=== PATIENT | male | born 1970 | race Caucasian/White ===

== ENCOUNTER → 2019-05-01 13:27 | Outpatient (BNVA) | payer MEDICARE, MEDICAID, SELFPAY | PROVIDERS: Family Provider Family Medicine; Visit Provider Psychiatry & Neurology Neurology | DX: M50.020 Cervical disc disorder with myelopathy, mid-cervical region, unspecified level (principal); G56.02 Carpal tunnel syndrome, left upper limb | CPT/HCPCS: 95886; 95912 ==

== ENCOUNTER → 2019-05-31 12:31 | Outpatient (BNVA) | payer MEDICARE, MEDICAID, SELFPAY | PROVIDERS: Family Provider Family Medicine; PCP Family Medicine; Referring Provider Specialist; Visit Provider Anesthesiology Pain Medicine | DX: M50.920 Unspecified cervical disc disorder, mid-cervical region, unspecified level (principal); M43.12 Spondylolisthesis, cervical region; M50.020 Cervical disc disorder with myelopathy, mid-cervical region, unspecified level; M54.9 Dorsalgia, unspecified; G56.02 Carpal tunnel syndrome, left upper limb; Z98.1 Arthrodesis status | CPT/HCPCS: 99214; 99999 ==

== ENCOUNTER → 2019-06-05 11:48 | Outpatient (BNVA) | payer MEDICARE, MEDICAID, SELFPAY | PROVIDERS: Family Provider Family Medicine; PCP Family Medicine; Visit Provider Anesthesiology Pain Medicine | DX: M54.2 Cervicalgia (principal) | CPT/HCPCS: 62321; 77003; J1100; J2001 ==

== ENCOUNTER 2019-06-06 13:29 | Outpatient (RCR) | payer MEDICARE, MEDICAID, SELFPAY | END 2019-06-10 23:59 | disposition home or self-care (01) | LOC: SPT 13:29 | PROVIDERS: Family Provider Family Medicine; PCP Family Medicine; Referring Provider Specialist; Visit Provider Specialist | DX: M50.020 Cervical disc disorder with myelopathy, mid-cervical region, unspecified level (principal) | CPT/HCPCS: 97110; 97161; 97530 ==

== ENCOUNTER 2019-06-11 06:00 | Outpatient (RCR) | payer MEDICARE, MEDICAID, SELFPAY | END 2019-07-11 23:59 | disposition home or self-care (01) | LOC: SPT 06:00 | PROVIDERS: Family Provider Family Medicine; PCP Family Medicine; Referring Provider Specialist; Visit Provider Specialist | DX: M50.020 Cervical disc disorder with myelopathy, mid-cervical region, unspecified level (principal) | CPT/HCPCS: 97110 ==

== ENCOUNTER → 2019-06-29 12:59 | Outpatient (BNVA) | payer MEDICARE, MEDICAID, SELFPAY | PROVIDERS: Family Provider Family Medicine; PCP Family Medicine; Visit Provider Anesthesiology Pain Medicine | DX: M50.920 Unspecified cervical disc disorder, mid-cervical region, unspecified level (principal) | CPT/HCPCS: 62321; J1100; J2001 ==

== ENCOUNTER 2019-07-12 06:00 | Outpatient (RCR) | payer MEDICARE, MEDICAID, SELFPAY | END 2019-08-10 23:59 | disposition home or self-care (01) | LOC: SPT 06:00 | PROVIDERS: Family Provider Family Medicine; PCP Family Medicine; Referring Provider Specialist; Visit Provider Specialist | DX: M50.020 Cervical disc disorder with myelopathy, mid-cervical region, unspecified level (principal) | CPT/HCPCS: 97110 ==

== ENCOUNTER → 2019-07-13 09:19 | Outpatient (BNVA) | payer MEDICARE, MEDICAID, SELFPAY | PROVIDERS: Family Provider Family Medicine; PCP Family Medicine; Visit Provider Anesthesiology Pain Medicine | DX: M50.020 Cervical disc disorder with myelopathy, mid-cervical region, unspecified level (principal); M50.920 Unspecified cervical disc disorder, mid-cervical region, unspecified level; M43.12 Spondylolisthesis, cervical region; M54.9 Dorsalgia, unspecified; G56.02 Carpal tunnel syndrome, left upper limb; Z98.1 Arthrodesis status; Z79.891 Long term (current) use of opiate analgesic | CPT/HCPCS: 99214 ==

== ENCOUNTER 2019-08-11 06:00 | Outpatient (RCR) | payer MEDICARE, MEDICAID, SELFPAY | END 2019-09-10 23:59 | disposition home or self-care (01) | LOC: SPT 06:00 | PROVIDERS: PCP Family Medicine; Referring Provider Specialist; Visit Provider Specialist | DX: M50.020 Cervical disc disorder with myelopathy, mid-cervical region, unspecified level (principal) | CPT/HCPCS: 97110 ==

== ENCOUNTER → 2019-11-07 10:17 | Outpatient (BNVA) | payer MEDICARE, MEDICAID, SELFPAY | PROVIDERS: PCP Family Medicine; Visit Provider Anesthesiology Pain Medicine | DX: M54.42 Lumbago with sciatica, left side (principal); M54.41 Lumbago with sciatica, right side; M50.920 Unspecified cervical disc disorder, mid-cervical region, unspecified level; M43.12 Spondylolisthesis, cervical region; M50.020 Cervical disc disorder with myelopathy, mid-cervical region, unspecified level; M54.9 Dorsalgia, unspecified; G56.02 Carpal tunnel syndrome, left upper limb; Z98.1 Arthrodesis status | CPT/HCPCS: 99213 ==

== ENCOUNTER 2021-02-04 10:48 | Emergency (ER) | payer MEDICARE, MEDICAID, SELFPAY ==
[2021-02-04 11:13] VITALS: BP 155/75; PULSE 67; RESP 18; TEMP 36.8; O2SAT 96; BMI 29.2
--- NOTE | 2021-02-04 11:28 | W.ED.GENADLT ---
HPI - General Adult General: Chief complaint: Extremity Injury, Upper Stated complaint: L MIDDLE FINGER INJURY Time Seen by Provider: 02/04/21 11:04 History of Present Illness: HPI narrative: HPI: [50]yo patient w/ no PMH presenting to the ED w/ laceration to R middle finger while opening a wooden door to let his dog out around 10am. Endorses mild bleeding that stopped. No LOC, injury elsewhere, focal weakness, or significant mechanism of injury. UTD with tetanus. Not on antiplatelets or anticoagulants. Patient denies any foreign body sensation Onset: 1 hr ago Duration: x 1 episode Location: home Severity: mild Review of Systems Narrative: Constitutional: No fever, no chills. HEENT: No vision changes CV: No chest pain, no palpitations PULM: No productive cough, no dyspnea. GI: No abdominal pain, no N/V/D. : No Dysuria MSKEL: No muscle pain SKIN: +Laceration over R middle finger NEURO: No headache, no focal weakness. HEME: No visible bruises PSYCH: Normal mood PFSH ED PFSH: Medical History (Updated 02/04/21 @ 11:27 by Chemo Rey MD) Cervical disc disorder with myelopathy of mid-cervical region Surgical History History of lumbar laminectomy (08/10/16) Dr. Pepper L4-L5, L5-S1 laminectomy with pedicle screw/nathalie fixation and transverse process fusion. History of lumbar spinal fusion Family History Mother Heart disease 62 years of age Father Unknown family medical history Social History (Updated 11/07/19 @ 10:30 by ANILA Engel) Smoking and tobacco status: former smoker Second hand smoke exposure: No Alcohol intake: current Alcohol intake frequency: holidays/special occasions only Lives independently: Yes Household members: significant other Housing: House Marital status: Single service: No Current occupational status: disabled History of recent travel: No Current gender identity: Male Physical Exam Narrative: EXAM NARRATIVE: Head: Atraumatic Eyes: PERRL, conjunctiva without injection, eyes tracking ENT: Mucous membrane moist NECK: Supple without lymphadenopathy LUNGS: LCTAB CV: RRR ABDOMEN: Soft, nontender in all quadrants, no guarding or rebound tenderness EXTREMITY: Normal ROM SKIN: Simple linear laceration over the volar aspect of the R middle finger NEURO: Awake and alert. No focal weakness PSYCH: Cooperative mood and affect Procedures Laceration Laceration 1: Side (If applicable): right Size (cm): 3 Description: flap Depth: simple, single layer Local Anesthetic: lidocaine 2% Pre-repair: wound explored, irrigated extensively, deep structures intact and extensive debridement Skin layer closed with: vicryl Size (cm): 5-0 Number of sutures: 7 Technique: simple, interrupted and horizontal mattress Course Vital Signs: Vital signs: Vital Signs Temperature 98.2 F 02/04/21 11:13 Pulse Rate 67 02/04/21 11:13 Respiratory Rate 18 02/04/21 11:13 Blood Pressure 155/75 02/04/21 11:13 Pulse Oximetry 96 02/04/21 11:13 MDM - General Adult MDM Narrative: Medical decision making narrative: [50]yo patient had a laceration that was repaired in the ED after copious irrigation. After exploration of the wound, there was no evidence of a retained foreign body. No suspicion for underlying fracture. Intervention: Laceration repair. Please see laceration repair note. TDAP: UTD Interventions: Defer ABX at this time given location, event time, and patient without surrounding signs of infection. Patient received mupiricin cream to be used daily Disposition: Discharge. Patient has been given strict wound return precautions and instructions to follow up with their PMD in 2 days for a wound recheck. Patient aware sutures will need to be taken out in 7-10 days. Imaging Data^: Other Imaging: Radiologist's impression: FrantzBarry I (c) 50 M 1970 [address] [id number] ReportSigned Patient: Barry Landry IUnit #: [id number]: 1970Acct#:[id number]/Sex: 50 / MADM Date: 02/04/21Loc: ERRoom/Bed:Attending Dr: Ordering Provider/Ordering MD: Chemo Rey MD Date of Service: 02/04/21 Procedure(s): XR hand RT 2V [id number] Accession Number(s): [id number] Report Number: [id number] WS: [id number] Exam: XR hand RT 2V [id number] Date/Time of Exam: 02/04/2021 11:29 AM Reason For Exam: HAND PAIN Findings: No fractures, soft tissue swelling, or unusual calcifications are noted. The hand shows normal bony alignment. There is no irregularity of the bony architecture. XR/XR hand RT 2V [id number] IMPRESSION: Normal right hand. Dictated By:De Los Santosigned By:Elisha Acosta Date/Time:02/04/21 1139DD/ 1137 Discharge Plan Discharge Patient Disposition: Home Clinical Impression: Finger laceration Condition: Stable Prescriptions: No Action ergocalciferol (vitamin D2) [Vitamin D2] 1,250 mcg (50,000 unit) capsule 1,250 mcg PO .weekly RF: 0 tizanidine 4 mg tablet 4 mg PO BID PRN (Reason: muscle spasticity) Qty: 60 RF: 0 fluticasone propionate 50 mcg/actuation spray,suspension 1 spray INTRANASAL DAILY RF: 0 ibuprofen 800 mg tablet 800 mg PO BID PRN (Reason: pain) Qty: 60 RF: 0 Discharge Orders: Discharge ED (Routine); Ordered 02/04/21 Ordered By: Chemo Rey Referrals: Kingsley Bob MD [Physician] - Discharge Diet: Advance as tolerated Discharge Activity: Resume usual activity Patient Instructions: Laceration (ED) Activity Restrictions/Additional Instructions: Come back to the emergency room if you have any signs of infection along her suture site including drainage, redness, suture falling apart. Otherwise follow-up with your primary care doctor or come back to the emergency room in 10 to 14 days for suture removal. Coding Level of Care Code ED [employer] for [facility]lecio Pires
--- NOTE | 2021-02-04 11:29 | XR_ITS ---
WS: [id number] Exam: XR hand RT 2V [id number] Date/Time of Exam: 02/04/2021 11:29 AM Reason For Exam: HAND PAIN Findings: No fractures, soft tissue swelling, or unusual calcifications are noted. The hand shows normal bony alignment. There is no irregularity of the bony architecture. XR/XR hand RT 2V [id number] IMPRESSION: Normal right hand.
[2021-02-04] MEDS: lidocaine 2% INJ 20 mL INJECTION (12:20)
[2021-02-04] MEDS: tetanus-dipt-pertussis 0.5 mL SDV IM (12:23)
[2021-02-04] MEDS: mupirocin oint 22 gm 1 APPLIC TOPICAL (12:26)
== END 2021-02-04 12:33 | disposition home or self-care (01) ==
PROVIDERS: Emergency Provider Emergency Medicine; PCP Family Medicine
DX: S61.213A Laceration without foreign body of left middle finger without damage to nail, initial encounter (principal); X58.XXXA Exposure to other specified factors, initial encounter; Y93.K9 Activity, other involving animal care; Z87.891 Personal history of nicotine dependence
CPT/HCPCS: 12002; 73120; 90471; 90715; 99283

== ENCOUNTER → 2021-09-15 14:21 | Outpatient (BNVA) | payer MEDICARE, MEDICAID, SELFPAY | PROVIDERS: PCP Family Medicine; Referring Provider Family Medicine; Visit Provider Specialist | DX: G25.81 Restless legs syndrome (principal); M50.020 Cervical disc disorder with myelopathy, mid-cervical region, unspecified level | CPT/HCPCS: 99204 ==

== ENCOUNTER → 2021-11-18 08:05 | Outpatient (BNVA) | payer MEDICARE, MEDICAID, SELFPAY | PROVIDERS: PCP Family Medicine; Visit Provider Specialist | DX: G25.81 Restless legs syndrome (principal); M50.020 Cervical disc disorder with myelopathy, mid-cervical region, unspecified level | CPT/HCPCS: 99214 ==

== ENCOUNTER 2021-12-16 06:51 | Outpatient (CLI) | payer MEDICARE, MEDICAID, SELFPAY ==
--- NOTE | 2021-12-16 07:15 | MR_ITS ---
WS: [id number] MRI CERVICAL SPINE NONCONTRAST HISTORY: Chronic neck pain for 25 years. No injury. Bilateral arm tingling. COMPARISON: 12/16/2018 Technique: Multiplanar, multisequence noncontrast imaging of the cervical spine. Mild straightening of the normal cervical lordosis. Mild disc desiccation throughout the cervical spi ne. Mild thickening of the posterior longitudinal ligament. Very mild progression of disc and osteoph yte encroachment upon the ventral thecal sac since 2019. No acute fracture. Signal within the cervical cord is normal. Visualized posterior fossa is unremarkable. Craniocervical junction, C1 and C2 relationship, odontoid process and soft tissues are normal. C2-C3: Normal. C3-C4: Osteophytic ridging with a central disc protrusion. Osteophyte and disc encroachment into the foramina. Moderate bilateral foraminal narrowing due to the disc and osteophyte disease. Greater encr oachment into the RIGHT foramina. C4-C5: Continued hypertrophic changes along the posterior longitudinal ligament with osteophyte and d isc bulging with a central protrusion. Contact on the ventral thecal sac. Mild central with moderate bilateral foraminal stenosis. C5-C6: Central disc protrusion with bilateral foraminal osteophytes, LEFT greater than RIGHT. Mild RI GHT and moderate LEFT foraminal stenosis. C6-C7: Normal. C7-T1: Normal. Paraspinal soft tissue are normal. MR/MR cervical spin wo con* [id number] IMPRESSION: 1. Mild progression of degenerative spondylitic changes in the cervical spine since 12/16/2018. 2. Moderate bilateral foraminal stenosis at C3-4 due to disc and osteophyte en croachment, RIGHT greater than LEFT. 3. Mild central with moderate bilateral foraminal stenosis at C4-5 due to cent ral disc protrusion and disc osteophyte disease. 4. Moderate LEFT foraminal stenosis at C5-6 due to disc and osteophyte disease and mild RIGHT foraminal stenosis.
== END 2021-12-16 06:52 | disposition home or self-care (01) ==
LOC: RAD 06:52
PROVIDERS: PCP Family Medicine; Visit Provider Specialist
DX: M50.920 Unspecified cervical disc disorder, mid-cervical region, unspecified level (principal); M43.12 Spondylolisthesis, cervical region; M50.020 Cervical disc disorder with myelopathy, mid-cervical region, unspecified level; M48.02 Spinal stenosis, cervical region; M25.78 Osteophyte, vertebrae
CPT/HCPCS: 72141

== ENCOUNTER → 2021-12-30 09:02 | Outpatient (BNVA) | payer MEDICARE, MEDICAID, SELFPAY | PROVIDERS: PCP Family Medicine; Referring Provider Specialist; Visit Provider Specialist | DX: M48.02 Spinal stenosis, cervical region (principal); G56.03 Carpal tunnel syndrome, bilateral upper limbs | CPT/HCPCS: 95910; 95912 ==

== ENCOUNTER → 2022-02-19 10:24 | Outpatient (BNVA) | payer MEDICARE, MEDICAID, SELFPAY | PROVIDERS: PCP Family Medicine; Referring Provider Specialist; Visit Provider Specialist | DX: G56.02 Carpal tunnel syndrome, left upper limb (principal); M43.12 Spondylolisthesis, cervical region; Z98.1 Arthrodesis status | CPT/HCPCS: 95861; 99213 ==

== ENCOUNTER 2022-04-10 22:51 | Emergency (ER) | payer MEDICARE, OTHER, MEDICAID, SELFPAY ==
--- NOTE | 2022-04-10 22:53 | ECG_ITS ---
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 Measurements Intervals [place] Rate: 73 P: 50 OR: 166 QRS: 64 QRSD: 113 T: 63 QT: 391 QTc: 433 Interpretive Statements SINUS RHYTHM WITH OCCASIONAL VENTRICULAR PREMATURE COMPLEXES POSSIBLE RIGHT VENTRICULAR CONDUCTION DELAY [RSR (QR) IN V1/V2] No previous ECG available for comparison Electronically Signed On 04-11-2022 15:17:00 CHOIR DIRECTOR by Saida Palacios M.D. [id number]
--- NOTE | 2022-04-10 22:53 | XRR_ITS ---
PROCEDURE INFORMATION: Exam: XR Chest Exam date and time: 04/10/2022 11:05 PM Age: 52 years old Clinical indication: Patient HX: Episodic chest pain for months. He states that today he had some pain and some slight dyspnea states that is all since resolved. ; Additional info: Cp TECHNIQUE: Imaging protocol: Radiologic exam of the chest. Views: 1 view. COMPARISON: MR cervical spin wo con* [id number] 12/16/2021 7:35 AM FINDINGS: Lungs: No focal airspace disease. Pleural spaces: Unremarkable. No pleural effusion. No pneumothorax. Heart/Mediastinum: Cardiomediastinal silhouette is within normal limits. Bones/joints: Unremarkable. XR/XR chest 1V portable [id number] IMPRESSION: No acute cardiopulmonary abnormality.
[2022-04-10 22:55] VITALS: BP 138/80; PULSE 76; RESP 18; TEMP 36.6; O2SAT 95; BMI 33.2
[2022-04-10 23:53] LABS: Basophils % 0.3 %; Eosinophils # 0.2 10^3/uL (0.0-0.8); Eosinophils % 1.7 %; Hemoglobin 13.9 g/dL (11.7-16.6); Lymphocytes # 2.4 10^3/uL (0.8-4.8); Lymphocytes % 26.9 %; Mean Corpuscular HGB Conc 33.9 g/dL (30.0-36.0); Mean Corpuscular Hemoglobin 30.3 pg (28.0-34.0); Mean Corpuscular Volume 89.5 fl (80-94); Mean Platelet Volume 8.9 fL (7.4-10.4); Monocytes # 0.8 10^3/uL (0.2-0.9); Monocytes % 8.8 %; Neutrophils # 5.56 10^3/uL (1.8-7.7); Nucleated Red Blood Cells % 0 %; Platelet Count 277 10^3/cmm (130-400); Red Blood Count 4.58 10^6/uL (4.1-5.3); Red Cell Distribution Width 12.9 % (12.1-15.1)
[2022-04-11 00:13] LABS: Troponin(5th) Baseline 14 ng/L (0-15)
[2022-04-11 00:22] LABS: Alanine Aminotransferase 27 U/L (0-41); Albumin Level 4.7 g/dL (3.5-5.2); Alkaline Phosphatase 59 U/L (40-130); Aspartate Amino Transferase 29 U/L (0-40); Blood Urea Nitrogen 17 mg/dL (6-20); Calcium 9.1 mg/dL (8.5-10.5); Carbon Dioxide 25 mmol/L (22-29); Chloride 106 mmol/L (98-107); Globulin 2.3 g/dL (1.3-4.6); Glomerular Filtration Rate 102.3 mL/min (90-130); Glucose 95 mg/dL (65-115); NT Pro B Type Natriuretic Pept 24 pg/mL (0-125); Osmolality Calculated 293 mOsm/kg (285-295); Sodium 141 mmol/L (136-145); Total Bilirubin 0.2 mg/dL (0.15-1.2)
--- NOTE | 2022-04-11 01:31 | ECG_ITS ---
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 Measurements Intervals [place] Rate: 66 P: 61 MD: 188 QRS: 52 QRSD: 110 T: 63 QT: 403 QTc: 423 Interpretive Statements SINUS RHYTHM WITH OCCASIONAL VENTRICULAR PREMATURE COMPLEXES POSSIBLE RIGHT VENTRICULAR CONDUCTION DELAY [RSR (QR) IN V1/V2] Compared to ECG 04/10/2022 23:02:21 No significant changes Electronically Signed On 04-11-2022 15:24:28 [employer] by Saida Palacios M.D. [email or web address]/[id number]
[2022-04-11 02:55] LABS: Troponin 5 2HR 14.62 ng/L (0-15)
--- NOTE | 2022-04-11 03:10 | ED_ITS ---
HPI - Chest Pain General: Chief Complaint: Chest Pain Stated Complaint: SOB, chest pain Time Seen by Provider: 04/11/22 03:02 Source: patient Mode of arrival: ambulatory Limitations: no limitations History of Present Illness: 52-year-old male states that he been having episodic chest pain for months. He states that today he had some pain and some slight dyspnea states that is all since resolved. He denies any worsening improving factors. Denies any nausea or diaphoresis. He denies any recent long trips or surgery. Associated symptoms: Deny abdominal pain, dyspnea, fever(s), nausea or vomiting Review of Systems Const: Denies: fever(s), chills, body aches or change in appetite Eyes: Denies: blurry vision or eye discomfort ENMT: Denies: throat pain or dental pain Card: Denies: chest pain Resp: Denies: dyspnea GI: Denies: abdominal pain, nausea, vomiting or diarrhea : Denies: dysuria Musc: Denies: neck pain or back pain Skin/Breast: Denies: rash Neuro: Denies: headache(s) Psych: Denies: depression Dewayne/Lymph: Denies: easy bruising All/Imm: Denies: urticaria PFSH ED PFSH: Medical History Cervical disc disorder with myelopathy of mid-cervical region Surgical History History of lumbar laminectomy (08/10/16) Dr. Pepper L4-L5, L5-S1 laminectomy with pedicle screw/nathalie fixation and transverse process fusion. History of lumbar spinal fusion Family History Mother Heart disease 62 years of age Father Unknown family medical history Social History Smoking and tobacco status: never smoked Second hand smoke exposure: No Alcohol intake: current Alcohol intake frequency: holidays/special occasions only Lives independently: Yes Household members: significant other Housing: House Marital status: Single service: No Current occupational status: disabled History of recent travel: No Current gender identity: Male Physical Exam Const: COMMON NORMALS: no acute distress, patient oriented x3 and healthy appearing HENMT: COMMON NORMALS: normocephalic and atraumatic HEAD & SCALP: normocephalic and atraumatic Eye: COMMON NORMALS: Equal, round and reactive pupils present and EOMs intact bilaterally PUPIL: Yes Equal, round and reactive pupils present Neck/C-Spine: COMMON NORMALS: full ROM and supple Chest: COMMONS NORMALS: normal inspection of the chest and normal palpation of entire chest wall Resp: COMMON NORMALS: normal respiratory effort, No retractions, No use of accessory muscles and clear to auscultation bilaterally AUSCULTATION: clear to auscultation bilaterally Cardio: COMMON NORMALS: regular rate, regular rhythm and No murmurs present (Cardio) RATE: regular rate RHYTHM: regular rhythm GI: COMMON NORMALS: Normal to inspection, nondistended, normoactive bowel sounds present, Soft to palpation, non-tender and no masses PALPATION: Yes Soft to palpation Extremity: COMMON NORMALS: normal to inspection and full ROM Neuro: COMMON NORMALS: patient oriented x3, moves all extremities and no focal motor deficits Psych: COMMON NORMALS: mental status grossly normal, Normal thought process present and cooperative THOUGHT PROCESS: Normal thought process present Skin: COMMON NORMALS: no rashes or lesions noted and no wounds GENERAL SKIN EXAM: no rashes or lesions noted Course Vital Signs: Vital signs: Vital Signs Temperature 97.8 F 04/10/22 22:55 Pulse Rate 76 04/10/22 22:55 Respiratory Rate 18 04/10/22 22:55 Blood Pressure 138/80 04/10/22 22:55 Pulse Oximetry 95 04/10/22 22:55 Oxygen Delivery Me thod 04/10/22 22:55 MDM - Chest Pain Medical Decision Making Patient presents for chest pains atypical in nature has been going on for months patient's troponins and EKG here are normal he is to follow-up with Dr. Philip rhodes if worsening he understands agrees to plan. Lab Data 04/10/22 23:42 04/10/22 23:42 Laboratory Results WBC 9.0 10^3/uL (4.0-10.0) 04/10/22 23:42 RBC 4.58 10^6/uL (4.1-5.3) 04/10/22 23:42 Hgb 13.9 g/dL (11.7-16.6) 04/10/22 23:42 Hct 41.0 % (42.0-52.0) L 04/10/22 23:42 MCV 89.5 fl (80-94) 04/10/22 23:42 MCH 30.3 pg (28.0-34.0) 04/10/22 23:42 MCHC 33.9 g/dL (30.0-36.0) 04/10/22 23:42 RDW 12.9 % (12.1-15.1) 04/10/22 23:42 Plt Count 277 10^3/cmm (130-400) 04/10/22 23:42 MPV 8.9 fL (7.4-10.4) 04/10/22 23:42 Neut % (Auto) 62.0 % 04/10/22 23:42 Lymph % (Auto) 26.9 % 04/10/22 23:42 [place] % (Auto) 8.8 % 04/10/22 23:42 Eos % (Auto) 1.7 % 04/10/22 23:42 Baso % (Auto) 0.3 % 04/10/22 23:42 Neut # (Auto) 5.56 10^3/uL (1.8-7.7) 04/10/22 23:42 Lymph # (Auto) 2.4 10^3/uL (0.8-4.8) 04/10/22 23:42 [place] # (Auto) 0.8 10^3/uL (0.2-0.9) 04/10/22 23:42 Eos # (Auto) 0.2 10^3/uL (0.0-0.8) 04/10/22 23:42 Baso # (Auto) 0.0 10^3/uL (0.0-0.1) 04/10/22 23:42 Nucleated RBC % (auto) 0 % 04/10/22 23:42 Nucleated RBCs # 0.0 /100WBC 04/10/22 23:42 Sodium 141 mmol/L (136-145) 04/10/22 23:42 Potassium 4.0 mmol/L (3.5-5.1) 04/10/22 23:42 Chloride 106 mmol/L (98-107) 04/10/22 23:42 Carbon Dioxide 25 mmol/L (22-29) 04/10/22 23:42 Anion Gap 14.0 (5-19) 04/10/22 23:42 BUN 17 mg/dL (6-20) 04/10/22 23:42 Creatinine 0.8 mg/dL (0.7-1.2) 04/10/22 23:42 GFR Calculation 102.3 mL/min (90-130) 04/10/22 23:42 Glucose 95 mg/dL (65-115) 04/10/22 23:42 Calculated Osmolality 293 mOsm/kg (285-295) 04/10/22 23:42 Calcium 9.1 mg/dL (8.5-10.5) 04/10/22 23:42 Total Bilirubin 0.2 mg/dL (0.15-1.2) 04/10/22 23:42 AST 29 U/L (0-40) 04/10/22 23:42 ALT 27 U/L (0-41) 04/10/22 23:42 Alkaline Phosphatase 59 U/L (40-130) 04/10/22 23:42 Troponin T Baseline 14 ng/L (0-15) 04/10/22 23:42 Troponin T 120 Minute 14.62 ng/L (0-15) 04/11/22 02:24 NT-Pro-B Natriuret Pep 24 pg/mL (0-125) 04/10/22 23:42 Total Protein 7.0 g/dL (6.6-8.7) 04/10/22 23:42 Albumin 4.7 g/dL (3.5-5.2) 04/10/22 23:42 Globulin 2.3 g/dL (1.3-4.6) 04/10/22 23:42 EKG Data EKG 1: I personally reviewed and interpreted this EKG as follows: EKG interpretation date: 04/11/22 EKG interpretation time: 01:31 Interpretation: nsr hr [address] or t wave abnormalities qrs 110 qtc 416 Discharge Plan Discharge Patient Disposition: Home Clinical Impression: Chest pain Condition: Stable Prescriptions: No Action ergocalciferol (vitamin D2) [Vitamin D2] 1,250 mcg (50,000 unit) capsule 1,250 mcg PO .weekly Rx Instructions: Takes 1 capsule of 50,000 weekly fluticasone propionate 50 mcg/actuation spray,suspension 1 spray INTRANASAL DAILY Rx Instructions: administer into each nostril baclofen 10 mg tablet 20 mg PO DAILY 30 Days Qty: 60 2RF Rx Instructions: Take 1-2 tablets at bedtime for RLS. ibuprofen 800 mg tablet 800 mg PO BID PRN (Reason: pain) Qty: 60 0RF ropinirole 1 mg tablet 1 mg PO BID Qty: 60 3RF Rx Instructions: Take 1-2 tablets at night Discharge Orders: Discharge ED (Routine); Ordered 04/11/22 Ordered By: Avni Cabello Referrals: Kathleen Swanson MD [Primary Care Provider] - Saida Palacios MD [Physician] - 1-3 days Discharge Diet: Advance as tolerated Discharge Activity: Resume usual activity Patient Instructions: Chest Pain (ED) Coding Level of Care Code ED Deburring Technician for Neog Fwd Exam Comprehensive
[2022-04-11 03:38] LABS: Troponin 5 2HR Delta 0.62 ABS# (0-10)
--- NOTE | 2022-04-13 12:41 | DCPLANNER ---
Addendum entered by Deepthi Pascual 06/10/22 07:56: Patient had a follow up appointment scheduled with heart care - patient did attend appointment Addendum entered by Deepthi Pascual 04/15/22 13:24: Patient has a follow up appointment scheduled for Thursday, May 26, 2022 at 12:[address] Thorne at [facility]. Clinic will call patient with appointment information. Original Note: manager r d had message to schedule a follow up appointment for patient with cardiology. manager r d sent patients information to the front office staff at [facility]. Patients information will be printed and reviewed. Clinic will call patient with appointment information.
== END 2022-04-11 03:19 | disposition home or self-care (01) ==
PROVIDERS: Emergency Provider Emergency Medicine; PCP Family Medicine
DX: R07.9 Chest pain, unspecified (principal)
CPT/HCPCS: 36415; 71045; 80053; 83880; 84484; 85025; 93005; 99285

== ENCOUNTER → 2022-05-26 12:21 | Outpatient (BNVA) | payer MEDICARE, MEDICAID, SELFPAY | PROVIDERS: PCP Family Medicine; Visit Provider Internal Medicine | DX: Z01.818 Encounter for other preprocedural examination (principal); R07.9 Chest pain, unspecified | CPT/HCPCS: 93005; 99204 ==

== ENCOUNTER 2022-06-15 08:12 | Outpatient (CLI) | payer MEDICARE, MEDICAID, SELFPAY ==
--- NOTE | 2022-06-15 08:45 | USCV_ITS ---
Barry Landry Age: 52 Gender: M : 1970 Exam Date: 06/15/2022 08:32 Ordering Phys: Randy Thorne M.D ([email or web address]) Technologist: [place]ura Landry [place] [facility] [place]ication: shortness of breath BP: 110 / 66 HR: 59 Rhythm: Sinus Technical Quality: Adequate MEASUREMENTS (Male / Female) Normal Values 2D ECHO LV Diastolic Diameter PLAX 5.1 cm 4.2 - 5.9 / 3.9 - 5.3 cm LV Systolic Diameter PLAX 2.8 cm IVS Diastolic Thickness 0.8 cm 0.6 - 1.0 / 0.6 - 0.9 cm IVS Systolic Thickness 1.0 cm LVPW Diastolic Thickness 1.4 cm 0.6 - 1.0 / 0.6 - 0.9 cm LVPW Systolic Thickness 1.6 cm LVOT Diameter 2.0 cm LV Ejection Fraction 2D Teich 75.5 % LV Ejection Fraction MOD 2C 72.7 % LV Ejection Fraction 2C AL 74.2 % LA Diameter 3.4 cm LA Width 4.0 cm LA Height 5.2 cm RA Width 4.1 cm RA Height 5.3 cm Aorta at Sinotubular Diameter 2.7 cm IVC Diameter 1.7 cm M-MODE Aortic Annulus Diameter 3.6 cm LA Ao Ratio MM 0.9 MV E Point Septal Separation 0.5 cm DOPPLER AV Peak Velocity 93.0 cm/s LVOT Peak Velocity 83.0 cm/s AV Area Cont Eq vti 2.9 cm squared AV Area Cont Eq pk 2.8 cm squared MV Peak Velocity 125.0 cm/s MV Area PHT 4.3 cm squared Mitral E to A Ratio 0.8 MV E' Velocity 37.5 cm/s Mitral E to MV E' Ratio 8.5 Mitral E to LV E' Lateral Ratio 9.3 Mitral E to LV E' Septal Ratio 7.8 TR Peak Velocity 318.1 cm/s TR Peak Gradient 40.5 mmHg TR Mean Velocity 268.0 cm/s TR Mean Gradient 29.6 mmHg TR Velocity Time Integral 84.4 cm Right Atrial Pressure 3.0 mmHg Pulmonary Artery Systolic Pressu 43.5 mmHg PV Peak Velocity 76.0 cm/s RV Acceleration Time 0.1 s RV Ejection Time 0.3 s RV AcT/ET 0.4 FINDINGS Left Ventricle Normal left ventricular size, systolic function and wall thickness, with no regional wall motion abnormalities. Grade I/IV diastolic dysfunction (abnormal relaxation filling pattern), normal to mildly elevated filling pressures. Left ventricular ejection fraction is estimated at 60 %. Right Ventricle Normal right ventricular size and systolic function. Mild pulmonary hypertension, RVSP 43.5 mmHg. Right Atrium The right atrium is normal in size. Left Atrium The left atrium is normal in size. Mitral Valve Structurally normal mitral valve. Trace mitral valve regurgitation. Aortic Valve Structurally normal trileaflet aortic valve. Mild aortic valve regurgitation. No aortic valve stenosis. Tricuspid Valve Structurally normal tricuspid valve. Trace to mild tricuspid valve regurgitation. Pulmonic Valve Pulmonic valve not well visualized. Pericardium Normal pericardium without effusion. Aorta Normal ascending aorta dimension. IVC The inferior vena cava appears normal. CONCLUSIONS Normal left ventricular size, systolic function and wall thickness, with no regional wall motion abnormalities. Grade I/IV diastolic dysfunction (abnormal relaxation filling pattern), normal to mildly elevated filling pressures. Left ventricular ejection fraction is estimated at 60 %. Normal right ventricular size and systolic function. Mild pulmonary hypertension, RVSP 43.5 mmHg. Structurally normal mitral valve. Trace mitral valve regurgitation. Structurally normal trileaflet aortic valve. Mild aortic valve regurgitation. No aortic valve stenosis. There are no prior echocardiogram studies to compare. Dr. Yuri Olivier MD (Electronically Signed) Final Date: 15 June 2022 16:04 S
== END 2022-06-15 08:13 | disposition home or self-care (01) ==
LOC: RAD 08:14
PROVIDERS: PCP Family Medicine; Visit Provider Internal Medicine
DX: R06.02 Shortness of breath (principal)
CPT/HCPCS: 93306

== ENCOUNTER → 2022-06-23 09:29 | Outpatient (BNVA) | payer MEDICARE, MEDICAID, SELFPAY | PROVIDERS: PCP Family Medicine; Visit Provider Specialist | DX: G25.81 Restless legs syndrome (principal); M43.12 Spondylolisthesis, cervical region; M50.920 Unspecified cervical disc disorder, mid-cervical region, unspecified level; F41.9 Anxiety disorder, unspecified | CPT/HCPCS: 99214 ==

== ENCOUNTER 2022-07-21 09:44 | Outpatient (CLI) | payer MEDICARE, MEDICAID, SELFPAY ==
--- NOTE | 2022-07-21 | ECG_ITS ---
[facility] Test Date: 2022-07-21 Pat Name: Barry Landry Department: Room: Gender: Male Commercial Credit Lead: : 1970 Requested By: Randy Thorne Order Number: [id number] Reena MD: Randy Thorne M.D. Interpretive Statements NAME OF STUDY: EXERCISE SESTAMIBI STRESS TEST INDICATION: [Chest Pain, ] EXERCISE DATA: The patient was exercised by Joao protocol. Baseline heart rate was 63 beats per minute. Baseline blood pressure was 141/81 millimeters of mercury. Target heart rate was 144 beats per minute. Maximum heart rate achieved was 161 which was 111% of the target heart rate. Maximum blood pressure was 208/106 millimeters of mercury. Total exercise time was 11 minutes 15 seconds. Maximum METs achieved was 13.5. The reason for ending the test was maximal effort achieved. The patient complained of shortness of breath during the stress test, which then resolved at the end of the test. ELECTROCARDIOGRAM: BASELINE: Showed sinus rhythm, normal axis, no significant ST-T changes at the baseline noted. [] EXERCISE: At the peak exercise level, [] No significant ST-T changes suggestive of ischemia noted. Patient had PVCs. [] RECOVERY: During the recovery period, heart rate dropped appropriately. No significant ST-T changes in the recovery suggestive of ischemia noted. PVCs were seen. [] CONCLUSION: 1. Exercise capacity excellent 2. Heart rate response was appropriate. 3. Blood pressure response was appropriate. 4. Symptoms not suggestive of ischemia. 5. Electrocardiogram portion of the stress test was not suggestive of ischemia. 6. Nuclear scan will be documented separately. Electronically Signed On 07-25-2022 13:21:47 CDT by Randy Thorne M.D. [id number]
[2022-07-21 10:34] VITALS: BMI 32.5
--- NOTE | 2022-07-21 10:36 | NMCV_ITS ---
NM josue perf SPECT r/s* [id number] Barry Landry Age: 52 Gender: M : 1970 Exam Date: 07/21/2022 10:58 Ordering Phys: Randy Throne M.D ([email or web address]) Technologist: WYATT Sheldon Exam Location: [facility] Indications: CHEST PAIN STRESS TEST Please see separate stress test report in [facility] for full findings IMAGE PROTOCOL Rest/Stress 1 Exercise Day Radiopharmaceutical Dose (mCi) Administration Site Administered by Rest: Tc-99m 10.7 IV WYATT Mariscal Sestamibi Stress:Tc-99m 32.8 IV WYATT Sheldon Sestamigrzegorz Rest: 21-Jul-2022 60 Discovery 630 Stress: 21-Jul-2022 15 Discovery 630 Radiopharmaceutical was injected at 88 % maximum heart rate. Images obtained in supine and prone position. SPECT RESULTS Technical Quality: Excellent Raw Data Analysis: Normal Image Corrections: No attenuation or motion correction applied Summed Stress Score: 1 Summed Rest Score: 3 Summed Difference Score: 0 PERFUSION FINDINGS There is a small in size, fixed perfusion defect noted in the apical inferior and inferior aguilar. This is consistent with small area of prior infarct noted in the RCA territory. No evidence of ischemia. FUNCTIONAL RESULTS (calculated via Gated SPECT) Stress Image LV EF (%): 55 Stress EDV (mL):131 TID: 0.94 Stress ESV (mL):59 FUNCTIONAL FINDINGS: There is normal left ventricular systolic function. IMPRESSIONS 1. 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 LV systolic function is normal. Randy Thorne MD (Electronically Signed) Final Date: 22 July 2022 11:58 S
[2022-07-21 12:04] VITALS: BP 145/97; PULSE 78
== END 2022-07-21 09:45 | disposition home or self-care (01) ==
PROVIDERS: PCP Family Medicine; Visit Provider Internal Medicine
DX: R07.9 Chest pain, unspecified (principal)
CPT/HCPCS: 36415; 78452; 93017; A9500; J2785

== ENCOUNTER → 2022-08-12 12:42 | Outpatient (BNVA) | payer MEDICARE, MEDICAID, SELFPAY | PROVIDERS: PCP Family Medicine; Visit Provider Internal Medicine | DX: Z01.818 Encounter for other preprocedural examination (principal); R07.9 Chest pain, unspecified; I27.20 Pulmonary hypertension, unspecified | CPT/HCPCS: 99214 ==

== ENCOUNTER 2022-09-30 08:24 | Outpatient (RCR) | payer MEDICARE, MEDICAID, SELFPAY | END 2022-10-09 23:59 | disposition home or self-care (01) | LOC: SPT 08:24 | PROVIDERS: PCP Family Medicine; Visit Provider Family Medicine | DX: M43.12 Spondylolisthesis, cervical region (principal) | CPT/HCPCS: 97110; 97162 ==

== ENCOUNTER 2022-10-10 23:59 | Outpatient (RCR) | payer MEDICARE, MEDICAID, SELFPAY | END 2022-10-22 23:59 | disposition home or self-care (01) | LOC: SPT 23:59 | PROVIDERS: PCP Family Medicine; Visit Provider Family Medicine | DX: M43.12 Spondylolisthesis, cervical region (principal) | CPT/HCPCS: 97110 ==

== ENCOUNTER → 2022-10-20 09:05 | Outpatient (BNVA) | payer MEDICARE, MEDICAID, SELFPAY | PROVIDERS: PCP Family Medicine; Referring Provider Family Medicine; Visit Provider Orthopaedic Surgery | DX: M47.12 Other spondylosis with myelopathy, cervical region (principal); M54.2 Cervicalgia; Z98.1 Arthrodesis status; Z46.89 Encounter for fitting and adjustment of other specified devices | CPT/HCPCS: 72050; 72110; 97760; 99204; L0172 ==

== ENCOUNTER 2022-10-20 11:08 | Outpatient (CLI) | payer MEDICARE, MEDICAID, SELFPAY | END 2022-10-20 11:09 | disposition home or self-care (01) | LOC: SPT 11:09 | PROVIDERS: PCP Family Medicine; Visit Provider Orthopaedic Surgery | DX: Z46.89 Encounter for fitting and adjustment of other specified devices (principal); M54.2 Cervicalgia | CPT/HCPCS: 97760; L0172 ==

== ENCOUNTER → 2022-10-21 11:04 | Outpatient (BNVA) | payer MEDICARE, MEDICAID, SELFPAY | PROVIDERS: PCP Family Medicine; Visit Provider Nurse Practitioner Family | DX: S46.212A Strain of muscle, fascia and tendon of other parts of biceps, left arm, initial encounter (principal); W19.XXXA Unspecified fall, initial encounter | CPT/HCPCS: 99213 ==

== ENCOUNTER 2022-10-30 09:53 | Outpatient (CLI) | payer MEDICARE, MEDICAID, SELFPAY ==
--- NOTE | 2022-10-30 10:15 | MR_ITS ---
WS: [id number] EXAMINATION: MR elbow RT wo con* [id number] ORDER DATE: 10/30/2022 9:55 AM COMPARISON: None. HISTORY: injury fall TECHNIQUE: Axial T1, axial T2 fat sat, coronal T1, coronal proton density fat sat, coronal STIR, sagi ttal proton density fat sat, and axial fat sat 3D performed. FINDINGS: Diffuse edema involving the distal biceps brachia muscle belly. Associated diffuse fluid extending al harris the distal biceps muscle belly. High-grade complete appearing tear involving the biceps brachia t endon which appears retracted to the antecubital fossa. Laxity and redundancy in the retracted biceps tendon. Normal bone marrow signal in the radius and radial tuberosity. Normal distal humerus and olecranon. N ormal bone marrow signal in the radial head. Tiny amount of fluid along the common extensor tendon co mplex. Suspected small partial tear at the common extensor tendon origin. Lateral collateral ligament appears intact. Common flexor tendon complex appears intact. MR/MR elbow RT wo con* [id number] IMPRESSION: Some images degraded by motion. 1. Complete appearing high-grade tear involving the biceps brachia tendon with retraction to the level of the antecubital fossa. 2. Small amount of fluid signal abnormality involving the common extensor tend on complex suspicious for small partial tear and tendinopathy. 3. Diffuse fluid and edema involving the distal biceps brachii muscle.
== END 2022-10-30 09:54 | disposition home or self-care (01) ==
PROVIDERS: PCP Family Medicine; Visit Provider Nurse Practitioner Family
DX: S46.219A Strain of muscle, fascia and tendon of other parts of biceps, unspecified arm, initial encounter (principal); W19.XXXA Unspecified fall, initial encounter
CPT/HCPCS: 73221

== ENCOUNTER → 2022-11-05 10:13 | Outpatient (BNVA) | payer MEDICARE, MEDICAID, SELFPAY | PROVIDERS: PCP Family Medicine; Visit Provider Nurse Practitioner Family | DX: Z01.818 Encounter for other preprocedural examination (principal); S46.211A Strain of muscle, fascia and tendon of other parts of biceps, right arm, initial encounter; W10.9XXA Fall (on) (from) unspecified stairs and steps, initial encounter; M47.12 Other spondylosis with myelopathy, cervical region | CPT/HCPCS: 36415; 80053; 81003; 85025; 99214 ==

== ENCOUNTER 2022-11-16 06:41 | Day surgery (SDC) | payer MEDICARE, MEDICAID, SELFPAY ==
[2022-11-13 13:35] VITALS: BMI 31.5
[2022-11-16] VITALS (9 sets, daily range): BP systolic 107–172; BP diastolic 80–106; PULSE 54–88; RESP 16–18; TEMP 36.1–36.3; O2SAT 93–98
--- NOTE | 2022-11-16 | XR_ITS ---
WS: [id number] XR elbow RT 2V [id number] REASON FOR EXAM: MARA PICS FINDINGS: Soft tissue anchor over the radial tuberosity for biceps tendon repair. Surgical appliances intact and in proper position and alignment. IMPRESSION: Proximal biceps tendon repair as above.
[2022-11-16] MEDS: acetaminophen 1,000 MG/100 ML PIGGYBACK 400 MG IV (07:06)
[2022-11-16] MEDS: sodium chloride 0.9% 1,000 ML 30 ML IV (07:16)
[2022-11-16] MEDS: ketorolac 30 mg/mL INJ IVP (07:17)
--- NOTE | 2022-11-16 07:57 | W.PM.OPSUD ---
Surgery/Procedure H&P Update DATE OF PROCEDURE: November 16, 2022 DATE H&P PERFORMED: 11/05/22 CHANGES TO PREVIOUS DOCUMENTATION: None. No change in HPI visit from 11/05/2021 3. Patient has a right distal bicep tendon rupture. He understands the risk benefits complication alternatives with surgery and elects proceed with surgical intervention. All questions been answered at this time. PREOP DIAGNOSIS: Right distal bicep tendon rupture PRIMARY INDICATION FOR PROCEDURE: Right distal bicep tendon rupture PLANNED PROCEDURE: Operation Date: 11/16/22 08:20 Proposed Procedures p Right distal biceps tendon repair [id number],S46.219A(Right) - Jose De Jesus Tripp DO
--- NOTE | 2022-11-16 08:03 | ANES.PREANE2 ---
Pre-Anesthetic Assessment Height/Weight: Height 1.8 m Weight 102.512 kg Temp Pulse Resp BP Pulse Ox O2 Del Method 97.0 F L 54 L 18 107/80 96 Room Air 11/16/22 07:03 11/16/22 07:03 11/16/22 07:03 11/16/22 07:03 11/16/22 07:03 11/16/22 07:03 Preop Diagnosis: Right distal bicep tendon rupture Operation Date: 11/16/22 08:20 Proposed Procedures p Right distal biceps tendon repair [id number],S46.219A(Right) - Jose De Jesus Qasim, Familial anesthetic complications: None Was Beta Ankur taken within 24 hours: N/A Was Clonidine taken within 24 hours: N/A Last intake: Intake Last Liquid Date 11/15/22 Last Liquid Time 23:30 Last Solid Date 11/15/22 Last Solid Time 23:30 Social No alcohol and No tobacco Exam alert, oriented x 3, clear to auscultation bilaterally and regular rate & rhythm Airway Mallampati: Class III Dentition: full CV/HEM Stable Angina mild AVR, pulm htn Metabolic Hyperlipidemia Anesthetic Plan ASA status: 3 Anesthesia: General Risk of > 500 ml blood loss (7ml/kg in children): No Medications/Allergies Home Medications Medication Instructions Recorded Confirmed Last Taken Type ergocalciferol (vitamin D2) 1,250 1,250 mcg PO .weekly 05/16/19 11/13/22 11/15/22 History mcg (50,000 unit) capsule (Vitamin D2) oxymetazoline 0.05 % nasal spray 2 spray intranasal Q12H PRN 08/12/22 11/13/22 11/15/22 History (Afrin Sinus (oxymetazoline)) Allergy Symptoms Cervical Collar #1 ea 10/20/22 11/10/22 Unknown Rx Allergies Allergy/AdvReac Type Severity Reaction Status Date / Time ropinirole Allergy Unknown Unknown Verified 11/10/22 10:56 tramadol AdvReac Severe Legs Verified 11/10/22 10:56 swelling cefazolin AdvReac Intermediate facial Verified 11/10/22 10:56 edema hydrocodone AdvReac Intermediate Upset Verified 11/10/22 10:56 stomach oxycodone AdvReac Intermediate upset Verified 11/10/22 10:56 stomach gabapentin AdvReac Unknown DIZZINESS Verified 11/10/22 10:56 pregabalin [From Lyrica] AdvReac FLORES Verified 11/10/22 10:56 Current Medications Generic Name Dose Route Start Last Admin Trade Name Adia PRN Reason Stop Dose Admin Sodium Chloride 1,000 mls @ 30 mls/hr 11/16/22 07:15 11/16/22 07:16 Sodium Chloride 0.9% IV 11/17/22 07:14 30 mls/hr .Q24H LUIS Administration PFSH Anesthesia Medical History (Updated 11/10/22 @ 11:12 by Jarvis Zelaya NP) Aortic regurgitation Cervical disc disorder with myelopathy of mid-cervical region Dyslipidemia Surgical History History of lumbar laminectomy (08/10/16) Dr. Pepper L4-L5, L5-S1 laminectomy with pedicle screw/nathalie fixation and transverse process fusion. History of lumbar spinal fusion Family History (Updated 11/10/22 @ 10:58 by Jarvis Zelaya NP) Mother Heart disease 62 years of age Father Unknown family medical history Denies family history of Clotting disorder Anesthesia complication Bleeding disorder Social History Smoking and tobacco status: former smoker Second hand smoke exposure: No Smoking risk assessment/counseling performed?: No Alcohol intake: never Desire information about alcohol rehabilitation?: No Counseling given: No Substance/Drug Use: current Substance/Drug use frequency: daily Desire information about substance/drug rehabilitation?: No Caregiver/support person: No Lives independently: Yes Household members: significant other Housing: House Marital status: Single service: No Current occupational status: disabled Do you think of yourself as: Straight/Heterosexual Current gender identity: Male Data Anesthesia Blood Bank 11/16/22 07:10 Blood Type A Positive Rho(D) Type Positive Cardiac Studies: Echocardiogram 06/15/22 Sestamibi Stress Test (Cardiology) 07/21/22
[2022-11-16] MEDS: clindamycin 600 MG/50 ML PREMIX 100 MG IV (08:07)
[2022-11-16] MEDS: BUPivacaine 0.5% INJ 10 mL 5 ML INJECTION (09:08)
[2022-11-16] MEDS: lidocaine 1% INJ 10 mL (per mL) 5 ML XX (09:11)
[2022-11-16] MEDS: ondansetron 2 mg/ML SDV 2 mL 4 MG IVP (11:05)
[2022-11-16] MEDS: HYDROcodone-acetaminophen 5-325 mg Tablet 1 TAB PO (11:10)
--- NOTE | 2022-11-16 11:14 | ANE.PACU2 ---
Inpatient post-anesthesia follow up: Airway intact: Yes Vital signs: Temperature 97.0 F Pulse Rate 80 Respiratory Rate 18 Blood Pressure 130/89 Pulse Oximetry 93 Oxygen Delivery Me thod Room Air Oxygen Flow Rate 6 Fraction of Inspir ed Oxygen Hydration adequate: Yes Nausea and vomiting: No Pain level: 1 Mental status: Baseline
--- NOTE | 2022-11-16 12:13 | P.OP_ITS ---
Brief Operative Note Date of procedure: 11/16/22 Pre-op diagnosis: RIght Distal bicep tendon rupture Post-op diagnosis: same Procedure Done: Right distal biceps tendon Repair Surgeon: Jose De Jesus Tripp Estimated blood loss (mL): 5 Complications: None Post-op Plan: Patient taken to PACU in stable condition well. Placed into a posterior long- arm splint patient understands and agrees with current plan. All questions answered. We will follow distal bicep tendon repair protocol with therapy.. Patient will receive appropriate discharge instructions as well as pain medication postoperatively. We will follow-up in the orthopedic office in 2 weeks. Condition: stable Disposition: same day Coding Level of Care Code Acute Code for Melecio Fwandrew
--- NOTE | 2022-11-16 12:14 | P.OP_ITS ---
Operative Report Date of procedure: November 16, 2022 Pre-op diagnosis: Preop Diagnosis Right distal bicep tendon rupture Procedure: Post-op diagnosis: Same Procedure done: Right distal biceps tendon repair Implants: Arthrex distal bicep tendon repair kit -Arthrex #2 fiber loop -Arthrex Endobutton Surgeon: Jose De Jesus Tripp DO Estimated blood loss: 5 mL Tourniquet time 74 minutes IV fluids: See anesthesia record Complications: None Findings: See operative report narrative Condition: stable Disposition: same day Brief History: Patient has been seen and evaluated in the outpatient setting and findings as well as MRI findings consistent with a right distal biceps tendon rupture.? Patient did have elbow flexion but significant fatigue and weakness with supination.? 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 We talked about treatment options as far as nonoperative and operative intervention.? At this point time reviewing of his MRI results this tendon is not retracted significantly and should be able to be repaired with direct tendon repair.? We did talk about if there is been further retraction that we may need to perform an allograft augmentation repair if needed intraoperatively.? Patient understands risks benefits complications alternatives to surgical nonsurgical treatment options.? Understanding risk patient agrees to proceed with surgical intervention.? All questions answered at this time.? Consent obtained in the office. Procedure: Patient seen evaluate in the preoperative holding area.? Consent was reviewed and signed with patient.? Correct extremity was then marked.? Patient seen evaluated by anesthesia department.? Once cleared by anesthesia patient was taken back to the operative suite.? Patient was transported onto the OR table in supine position with an armboard to the right upper extremity.? A nonsterile tourniquet was applied to the right upper arm.? Patient then underwent anesthesia per the anesthesia department.? The right upper extremity was then prepped and draped in standard orthopedic fashion.? Final timeout performed.? Patient received appropriate preoperative antibiotics. Esmarch tourniquet was used exsanguinate the right upper extremity tourniquet was insufflated to 250 mmHg. A standard oblique incision centered over the radial head was made after I introduced a mini C arm to confirm the appropriate level of the radial tuberosity.? At this point in time I then made a small scalpel incision just through skin.? I then switched to Littler dissection scissors identified subcutaneous vein branching and then identified the forearm fascia.? I then incised the fascia longitudinally and then bluntly utilizing my finger probe directly down to the radial tuberosity.? At this point time I had my purchasing administrative assistant utilize only [employer] retractors with care to bluntly retract and protect the lateral antebrachial cutaneous nerve branch.? At this point time directly dissected and had direct visualization of the radial tuberosity. Biceps tendon had retracted at the level of the antecubital fossa and was scarred and significantly. This was unable to be freed up bluntly and as result I made a small transverse incision proximal to the antecubital fossa directly over the biceps tendon. This sharp scalpel incision was made through skin switched to Littler dissection scissors spreading longitudinally and then punctured the biceps fascia and identified the biceps muscle belly I then bluntly utilized my finger to scoop around the biceps brachii and ran my finger distally and identified the pseudo tendon encased around the actual tendon itself this was pulled out through the most proximal incision and the tendon was appropriately debrided. The pseudo tendon excised to its entirety to where we had complete identification of the distal ruptured bicep tendon stump I freshened up the edges with sharp scalpel incision and this was now ready for preparation. Next I grabbed Arthrex #2 fiber loop and performed 6 passes with a fiber loop locking my last stitch and now had excellent purchase and excursion with my biceps tendon.? At this point I then subsequently loaded this onto Arthrex his Endobutton clamp the sutures and set this aside. Once completed I shuttled my stitches utilizing a tendon passer from proximal about my distal incision. I then utilized a blunt elevator and elevated periosteum off the radial tuberosity.? I protected the leash of Carmine throughout this case I was able to mobilize this branch to allow me to retract with my [place]'s by my purchasing administrative assistant for direct visualization of the radial tuberosity.? Once I cleared off the footprint for repair, my purchasing administrative assistant utilizing [employer] retractors had direct visualization protecting all neurovascular structures with direct visualization of the radial tuberosity.? Took a 0.062 K wire loaded on a power drill and marked my planned placement for bicortical drilling with Arthrex Endobutton.? This was confirmed with mini C arm to be an appropriate center position of the radial tuberosity with excellent placement.? Once this was confirmed I then subsequently loaded Arthrex is drill bit for the Endobutton with plan for bicortical fixation utilizing a onlay technique.? I then subsequently drilled bi cortically with care not to plunge.? I then thoroughly irrigated and removed all bony debris with a suction and once all bony debris was removed I direct visualization of the bicortical drill tunnel.? I then loaded the Endobutton on Arthrex deployment kit and subsequently advanced this bicortically flipped the button and this was confirmed to be flipped and directly onto bone with mini C arm.? Once this was done I took a free needle and loaded the suture and sutured the limbs of the FiberWire up back through the tendon and then subsequently cinched the tendon directly onto bone while holding the elbow in roughly 20 degrees of flexion.? My purchasing administrative assistant held this while then I had excellent fixation and opposition of the tendon to the bony surface and subsequently tied the tendon with excellent fixation.? Once this was completed I then was able to check in the tendon had excellent tension as well as fixation.? At this point time the excess sutures were then cut.? Wound bed was then thoroughly irrigated.? Tourniquet was then deflated.? Hemostasis was satisfactory.? I then closed the subcutaneous tissue with 3-0 Vicryl suture and then the skin with running nylon stitch.? Patient tolerated procedure without complications.? Patient was then placed into a posterior splint.? Patient was awakened from anesthesia and taken to PACU in stable condition. Disposition: Patient taken PACU in stable condition recovering well.? Neurovascularly intact distally.? Splint on in place clean dry and intact to be nonweightbearing to the right upper extremity.? We will get him started on the distal bicep tendon repair protocol with our physical therapist.? Patient will follow-up with me in the office in 2 weeks.? He received appropriate discharge instruction as well as pain medication postoperatively.? He understands if any questions or concerns and contact the office.
--- NOTE | 2022-11-16 12:14 | P.PCN_ITS ---
PACU note Narrative: Patient taken to PACU in stable condition recovering well. Dressings on in place to the right upper extremity splint on in place clean dry and intact patient's fingertips are warm well-perfused brisk capillary refill less than 2 seconds. He is able to perform all cardinal hand movements AIN/PIN/r adial/ulnar/median nerves intact. Sensations intact light touch distally at the radial/ulnar/median nerve distribution. Exam: awake Disposition: discharged
== END 2022-11-16 11:28 | disposition home or self-care (01) ==
PROVIDERS: PCP Family Medicine; Visit Provider Student in an Organized Health Care Education/Training Program
PROC: (CPT 23430; principal; 2022-11-16 08:10)
DX: S46.211A Strain of muscle, fascia and tendon of other parts of biceps, right arm, initial encounter (principal); I20.8 Other forms of angina pectoris; I27.20 Pulmonary hypertension, unspecified; E78.5 Hyperlipidemia, unspecified; Z79.899 Other long term (current) drug therapy; Z87.891 Personal history of nicotine dependence; Z88.5 Allergy status to narcotic agent; X58.XXXA Exposure to other specified factors, initial encounter
CPT/HCPCS: 24342; 36415; 73070; 76000; 86850; 86900; C1713; J0131; J1170; J1885; J2405; J2704; J3010; J3490; J7030

== ENCOUNTER → 2022-12-01 10:02 | Outpatient (BNVA) | payer MEDICARE, MEDICAID, SELFPAY | PROVIDERS: PCP Family Medicine; Visit Provider Student in an Organized Health Care Education/Training Program | DX: S46.211A Strain of muscle, fascia and tendon of other parts of biceps, right arm, initial encounter; X58.XXXA Exposure to other specified factors, initial encounter; Z46.89 Encounter for fitting and adjustment of other specified devices; S46.211D Strain of muscle, fascia and tendon of other parts of biceps, right arm, subsequent encounter; X58.XXXD Exposure to other specified factors, subsequent encounter; Z98.890 Other specified postprocedural states | CPT/HCPCS: 73080; 97760; 99024; L3761 ==

== ENCOUNTER 2022-12-01 11:30 | Outpatient (CLI) | payer MEDICARE, MEDICAID, SELFPAY | END 2022-12-01 11:31 | disposition home or self-care (01) | LOC: SPT 11:30 | PROVIDERS: PCP Family Medicine; Visit Provider Student in an Organized Health Care Education/Training Program | DX: Z46.89 Encounter for fitting and adjustment of other specified devices (principal); S46.211D Strain of muscle, fascia and tendon of other parts of biceps, right arm, subsequent encounter; X58.XXXD Exposure to other specified factors, subsequent encounter; Z98.890 Other specified postprocedural states | CPT/HCPCS: 97760; 99024; L3761 ==

== ENCOUNTER 2022-12-08 08:38 | Outpatient (RCR) | payer MEDICARE, MEDICAID, SELFPAY | END 2022-12-10 23:59 | disposition home or self-care (01) | LOC: SOT 08:38 | PROVIDERS: Visit Provider Student in an Organized Health Care Education/Training Program | DX: Z47.89 Encounter for other orthopedic aftercare (principal) | CPT/HCPCS: 97110; 97166; 97530 ==

== ENCOUNTER → 2022-12-08 14:21 | Outpatient (BNVA) | payer MEDICARE, MEDICAID, SELFPAY | PROVIDERS: Visit Provider Family Medicine | DX: Z01.818 Encounter for other preprocedural examination (principal) | CPT/HCPCS: 80048; 85025 ==

== ENCOUNTER 2022-12-09 16:10 | Inpatient (IN) | payer MEDICARE, MEDICAID, SELFPAY ==
[2022-12-08 13:31] VITALS: BMI 31.4
[2022-12-09] VITALS (26 sets, daily range): BP systolic 118–187; BP diastolic 83–110; PULSE 60–108; RESP 16–33; TEMP 36.1–36.8; O2SAT 92–97
[2022-12-09] MEDS: sodium chloride 0.9% 1,000 ML 30 ML IV (11:48)
--- NOTE | 2022-12-09 12:19 | ANES.PREANE2 ---
Pre-Anesthetic Assessment Height/Weight: Height 1.8 m Weight 102.058 kg Temp Pulse Resp BP Pulse Ox O2 Del Method 98 F 60 18 134/88 97 Room Air 12/09/22 11:19 12/09/22 11:19 12/09/22 11:19 12/09/22 11:19 12/09/22 11:19 12/09/22 11:25 Operation Date: 12/09/22 12:25 Proposed Procedures p C4 corpectomy. With C3-C5 ACDF:[id number],M47.12(Not Applicable) - Luis Enrique Brush DO s C4 corpectomy. With C3-C5 ACDF:[id number],M47.12(Not Applicable) - Luis Enrique Brush DO Familial anesthetic complications: None Was Beta Ankur taken within 24 hours: N/A Was Clonidine taken within 24 hours: N/A Last intake: Intake Last Liquid Date 12/08/22 Last Liquid Time 23:00 Last Solid Date 12/08/22 Last Solid Time 23:00 Social No alcohol and No tobacco Exam alert, oriented x 3, clear to auscultation bilaterally and regular rate & rhythm Airway Mallampati: Class II Dentition: full CV/HEM Stable Angina and Myocardial Infarction Metabolic Hyperlipidemia Anesthetic Plan ASA status: 3 Anesthesia: General Risk of > 500 ml blood loss (7ml/kg in children): No Medications/Allergies Home Medications Medication Instructions Recorded Confirmed Last Taken Type ergocalciferol (vitamin D2) 1,250 1,250 mcg PO .weekly 05/16/19 12/08/22 11/15/22 History mcg (50,000 unit) capsule (Vitamin D2) Cervical Collar #1 ea 10/20/22 12/01/22 Unknown Rx hinged right elbow brace #1 ea 12/01/22 12/01/22 Unknown Rx [id number] Bone Growth Stimulator #1 ea 12/04/22 Unknown Rx Allergies Allergy/AdvReac Type Severity Reaction Status Date / Time ropinirole Allergy Unknown Unknown Verified 12/08/22 14:01 tramadol AdvReac Severe Legs Verified 12/08/22 14:01 swelling cefazolin AdvReac Intermediate facial Verified 12/08/22 14:01 edema gabapentin AdvReac Unknown DIZZINESS Verified 12/08/22 14:01 pregabalin [From Lyrica] AdvReac FLORES Verified 12/08/22 14:01 Current Medications Generic Name Dose Route Start Last Admin Trade Name Adia PRN Reason Stop Dose Admin Sodium Chloride 1,000 mls @ 30 mls/hr 12/09/22 11:30 12/09/22 11:48 Sodium Chloride 0.9% IV 12/10/22 11:29 30 mls/hr .Q24H LUIS Administration PFSH Anesthesia Medical History Aortic regurgitation Cervical disc disorder with myelopathy of mid-cervical region Dyslipidemia Surgical History History of lumbar laminectomy (08/10/16) Dr. Pepper L4-L5, L5-S1 laminectomy with pedicle screw/nathalie fixation and transverse process fusion. History of lumbar spinal fusion Family History Mother Heart disease 62 years of age Father Unknown family medical history Denies family history of Clotting disorder Anesthesia complication Bleeding disorder Social History Smoking and tobacco status: former smoker Second hand smoke exposure: No Smoking risk assessment/counseling performed?: No Alcohol intake: never Desire information about alcohol rehabilitation?: No Counseling given: No Substance/Drug Use: current Substance/Drug use frequency: daily Desire information about substance/drug rehabilitation?: No Caregiver/support person: No Lives independently: Yes Household members: significant other Housing: House Marital status: Single service: No Current occupational status: disabled Do you think of yourself as: Straight/Heterosexual Current gender identity: Male Data Anesthesia Cardiac Studies: Echocardiogram 06/15/22 Sestamibi Stress Test (Cardiology) 07/21/22
--- NOTE | 2022-12-09 13:20 | P.HP_ITS ---
Providers/Chief Complaint Primary Care Provider: Raj Dobbins DO History of Present Illness Barry Landry is a 52 year old male neck pain that started in his teens. He states at that time he was working in a [employer] and spent a large amount o f time looking down. He is unable to sleep through the night. He states he recent started physical therapy and is starting to experience burning pain to his low back. Chief Complaint: neck pain Onset: 30+ years Duration: years Characteristics: numbness, tingling, weakness Severity: 310 Location: neck pain Radiating symptoms: bilat arm numbness and tingling Aggravating factors: laying down Alleviating factors: heat Neuro deficits: denies numbness, tingling, weakness, incontinence of bowel/bladder, saddle anesthesia. Prior tx: injections years ago, recently started physical therapy? Review of Systems General: Reports: 10 or more systems reviewed and unremarkable except in HPI and below Const: Denies: fever(s) or chills Eyes: Denies: eye discharge ENMT: Denies: throat pain Card: Denies: chest pain Resp: Denies: dyspnea or productive cough GI: Denies: nausea or vomiting : Denies: flank pain Musc: Reports: neck pain and extremity pain Skin/Breast: Denies: rash Neuro: Reports: numbness in extremities and weakness in extremities Psych: Denies: anxiety Endo: Denies: polyuria Dewayne/Lymph: Denies: easy bruising All/Imm: Denies: urticaria Medications/Allergies Home Medications Medication Instructions Recorded Confirmed Last Taken Type ergocalciferol (vitamin D2) 1,250 1,250 mcg PO .weekly 05/16/19 12/08/22 11/15/22 History mcg (50,000 unit) capsule (Vitamin D2) Cervical Collar #1 ea 10/20/22 12/01/22 Unknown Rx hinged right elbow brace #1 ea 12/01/22 12/01/22 Unknown Rx [id number] Bone Growth Stimulator #1 ea 12/04/22 Unknown Rx Allergies Allergy/AdvReac Type Severity Reaction Status Date / Time ropinirole Allergy Unknown Unknown Verified 12/08/22 14:01 tramadol AdvReac Severe Legs Verified 12/08/22 14:01 swelling cefazolin AdvReac Intermediate facial Verified 12/08/22 14:01 edema gabapentin AdvReac Unknown DIZZINESS Verified 12/08/22 14:01 pregabalin [From Lyrica] AdvReac FLORES Verified 12/08/22 14:01 PFSH Acute PFSH: Medical History Aortic regurgitation Cervical disc disorder with myelopathy of mid-cervical region Dyslipidemia Surgical History History of lumbar laminectomy (08/10/16) Dr. Pepper L4-L5, L5-S1 laminectomy with pedicle screw/nathalie fixation and transverse process fusion. History of lumbar spinal fusion Family History Mother Heart disease 62 years of age Father Unknown family medical history Denies family history of Clotting disorder Anesthesia complication Bleeding disorder Social History Smoking and tobacco status: former smoker Second hand smoke exposure: No Smoking risk assessment/counseling performed?: No Alcohol intake: never Desire information about alcohol rehabilitation?: No Counseling given: No Substance/Drug Use: current Substance/Drug use frequency: daily Desire information about substance/drug rehabilitation?: No Caregiver/support person: No Lives independently: Yes Household members: significant other Housing: House Marital status: Single service: No Current occupational status: disabled Do you think of yourself as: Straight/Heterosexual Current gender identity: Male Vitals/I&O/Wt Last Vital Signs Temp 98 F 12/09/22 11:19 Pulse 60 12/09/22 11:19 Resp 18 12/09/22 11:19 BP 134/88 12/09/22 11:19 Pulse Ox 97 12/09/22 11:19 O2 Del Method Room Air 12/09/22 11:25 Weight last 48 hrs Weight 225 lb Physical Exam Narrative: CONSTITUTIONAL: This is a normal appearing 52 year old male in no acute distress. PSYCH: The patient is oriented to person, place and time. SKIN: The skin is of normal color and texture. NEURO: Patient is neurovascularly intact. MUSCULOSKELETAL / EXTREMITIES: 1.? lnjury(s): neck pain A&P Assessment and plan (1) Cervical spondylosis with myelopathy: C4 corpectomy with C3-C5 ACDF. Attestations Medical Necessity Statement*: Failed conservative therapy Coding Level of Care Code Acute Code for [facility] Fwd Diagnoses Cervical spondylosis with myelopathy M47.12
[2022-12-09] MEDS: vancomycin 1,000 MG in sodium chloride 0.9% 250 ML 250 MG IV (13:55)
[2022-12-09] MEDS: lidocaine-epi 2% 20 mL INJ INJECTION (14:24)
--- NOTE | 2022-12-09 15:43 | XR_ITS ---
WS: [id number] Exam: XR cervical spine 3V* [id number] Date/Time of Exam: 12/09/2022 3:43 PM Reason For Exam: OR PICS Limited anteroposterior and lateral C ARM images of the cervical spine are obtained for intraoperativ e purposes. Signs of anterior cervical fusion with spacer spanning C3-C5. An ET tube is noted.
--- NOTE | 2022-12-09 16:03 | P.OP_ITS ---
Operative Report Date of procedure: December 09, 2022 Pre-op diagnosis: Cervical spondylosis with myelopathy Post-op diagnosis: same Procedure done: 1. Anterior diskectomy C3/4 2. Anterior discectomy C4/5 3. Corpectomy C4 (>50%) 4. Insertion of corpectomy cage C3-C5 5. Instrumentation with anterior plate from C3-5 6. Anterior cervical fusion C3-C5 7. Use of allograft Surgeon: Luis Enrique Brush Teacher Counselor: Sky Guzman Teacher Counselor: The assistant press operator, Sky Guzman, THU was needed for his expertise under the microscope. He was important and necessary throughout the procedure to complete in a safe and timely manner. He assisted with patient positioning prepping and draping tissue retraction suctioning of the operative field protection of the dural sac and tissue closure Estimated blood loss (mL): 15 Procedure: 1. Anterior diskectomy C3/4 2. Anterior discectomy C4/5 3. Corpectomy C4 (>50%) 4. Insertion of corpectomy cage C3-C5 5. Instrumentation with anterior plate from C3-5 6. Anterior cervical fusion C3-C5 7. Use of allograft he patient was taken to the operating room, where he underwent general endotracheal anesthesia without complications. He was then positioned supine on the operating table, and all areas of impingement were well padded. The arms were carefully padded and tucked at his sides. A roll was placed between the shoulder blades.. An x-ray was done to determine the appropriate level for the skin incision. The entire neck was then sterilely prepped and draped in the usual fashion. Neuromonitoring was attached prior to prepping. A transverse skin incision was made and carried down to the platysma muscle. This was then split in line with its fibers. Blunt dissection was carried down medial to the carotid sheath and lateral to the trachea and esophagus until the anterior cervical spine was visualized. A needle was placed into a disc and an x-ray was done to determine its location. The longus colli muscles were then elevated bilaterally with the electrocautery unit. Self-retaining retractors were placed deep to the longus colli muscle. Dissection was made from C3 down to C5. The [place] pins were placed in C3 and C5. Microscope was brought in. A radical anterior discectomies were performed at C3-4 and C4-5. This included complete removal of the anterior annulus, nucleus, and posterior annulus. The posterior longitudinal ligament was removed as were the posterior osteophytes. Foraminotomies were then accomplished bilaterally. This was done using a high speed pérez, kerrison rongeurs and curretes Once all of this was accomplished, the curved currette was used to check for any residual compression. The central canal was wide open as were the foramen. Once this was performed then attention was brought to perform the corpectomy. A high-speed bur was used to take down the C4 vertebrae from uncinate process to uncinate process both on the right left side all the way down to the posterior longitudinal ligament. Once the vertebral body was decompressed on the posterior longitudinal ligament. This portion of the posterior longitudinal ligament was taken off the dura. There is evidence of the ligament scarring down to the dura. The foramen are open both C3-4 and C4-5 bilaterally. A high-speed bur was used to remove the cartilaginous endplates above and below the interspace on the inferior surface of C3 and the superior surface of C5. This space was then irrigated out a trial was used to identify the size of the corpectomy cage. Corpectomy cage was measured to be 26 mm. This size was selected osteo amp bone graft was packed into the cage and the cage was placed into the corpectomy site. Once this was completed then a anterior plate was placed this plate was placed from C3-C5. 2 screws were placed at C3 2 screws were placed and C5 had good purchase. Following a final copious irrigation, there was good hemostasis and no dural leaks. The carotid pulse was strong. The wounds were then closed in layers using 2-0 Vicryl suture for the platysma muscle, 2-0 Vicryl suture for the subcutaneous tissue, and 4-0 monocryl suture in a subcuticular skin closure. Glue was placed followed by application of a sterile dressing. The drain was hooked to bulb suction. A soft collar was applied. The patient was then carefully returned to the supine position on his hospital bed where he was reversed and extubated and taken to the recovery room having tolerated the procedure well.
[2022-12-09] MEDS: labetalol 5 mg/mL SDV 20mL 10 MG IVP (16:41)
[2022-12-09] MEDS: fentaNYL 50 mcg/mL INJ 2mL IVP (16:41)
[2022-12-09] MEDS: hyDRALAzine 20 mg/mL INJ 1 mL 5 MG IVP (17:21)
--- NOTE | 2022-12-09 17:27 | ANE.PACU2 ---
Inpatient post-anesthesia follow up: Airway intact: Yes Vital signs: Temperature 97.9 F Pulse Rate 80 Respiratory Rate 24 Blood Pressure 187/95 Pulse Oximetry 94 Oxygen Delivery Me thod Room Air Oxygen Flow Rate 6 Fraction of Inspir ed Oxygen Hydration adequate: Yes Nausea and vomiting: No Pain level: 1 Mental status: Baseline
[2022-12-09] MEDS: HYDROcodone-acetaminophen 5-325 mg Tablet PO ×2 (17:53→22:06)
[2022-12-09] MEDS: ketorolac 30 mg/mL INJ IVP (17:54)
[2022-12-09] MEDS: lactated ringers 1,000 ML 90 ML IV (18:00)
[2022-12-09] MEDS: docusate sodium 100 mg Capsule PO (18:46)
[2022-12-09] MEDS: acetaminophen 325 mg Tablet 650 MG PO (20:21)
[2022-12-09] MEDS: HYDROcodone-acetaminophen 5-325 mg Tablet 1 TAB PO (22:51)
[2022-12-09] MEDS: alum-mag-hydroxide-sime 30 mL UDC PO (22:56)
[2022-12-10] VITALS: BP 142/98; PULSE 80; RESP 18; TEMP 36.4; O2SAT 94
[2022-12-10] MEDS: vancomycin 1,000 MG in sodium chloride 0.9% 250 ML 250 MG IV (01:47)
[2022-12-10] MEDS: ondansetron 2 mg/ML SDV 2 mL 4 MG IVP (01:56)
[2022-12-10] MEDS: oxymetazoline 0.05% Nasal Spray 15 mL 2 SPRAY NOSTRIL-B (02:12)
[2022-12-10] MEDS: sodium chloride 0.9% 1,000 ML 100 ML IV (02:13)
[2022-12-10] MEDS: HYDROcodone-acetaminophen 5-325 mg Tablet PO ×2 (02:15→06:50)
[2022-12-10 04:30] VITALS: BP 142/92; PULSE 87; RESP 16; TEMP 37; O2SAT 94
[2022-12-10 06:00] VITALS: PULSE 88
--- NOTE | 2022-12-10 07:21 | PM.PN ---
Subjective Subjective: POD 1 Patient resting comfortably. Hemovac drain was discontinued through the night. Has improvement of his arm pain denies neck pain mild swallowing difficulties. Denies chest pain, headaches, shortness of breath Vitals/I&O/Wt Last Vital Signs Temp 98.6 F 12/10/22 04:30 Pulse 88 12/10/22 06:00 Resp 16 12/10/22 04:30 BP 142/92 12/10/22 04:30 Pulse Ox 94 12/10/22 04:30 O2 Del Method Room Air 12/09/22 18:35 O2 Flow Rate 6 12/09/22 15:57 12/09/22 12/10/22 12/10/22 22:59 06:59 14:59 Intake Total 680 / 930 2000 / 2930 Output Total 1200 / 1225 Balance 655 / 905 800 / 1705 Weight last 48 hrs Weight 225 lb Physical Exam Narrative: Patient is alert and oriented x3 with a good general appearance normal mood and affect. Nontender with palpation about the incisional site. Incision appears to be clean and dry without signs of erythema or drainage. No signs of infection. Good motor strength throughout both upper extremities. Appears to fire in all motor groups with 5/5 strength. Hands are warm good cap refill in all digits. Normal sensation to light touch in all dermatomal areas. A&P Assessment and plan (1) Status post cervical spinal fusion: Discharge home this morning. Encourage patient to continue walking program with no overhead lifting. Continue incentive spirometry at home continue to wear the [place] J collar at home. We will see him back in the office in 1 week's time for follow-up. Discontinue Hemovac drain. Attestations Medical Necessity Statement*: Discharge home this morning Coding Level of Care Code Acute Code for [facility] Fwd Diagnoses Status post cervical spinal fusion Z98.1
--- NOTE | 2022-12-10 07:37 | PC.PHAR ---
Addendum entered by Adriana Martínez 12/10/22 07:39: med rec tech didnt update meds because discharge meds/orders were in Original Note: med rec was done by norma mccarthy on 12/08/22 13:30 but didnt show as confirmed because dme/medical supplies wasnt confirmed so med rec tech confirmed the dme/medical supplies only
[2022-12-10 08:39] VITALS: BP 166/77; PULSE 80; RESP 16; TEMP 36.5; O2SAT 94
[2022-12-10] MEDS: docusate sodium 100 mg Capsule PO (08:49)
[2022-12-10] MEDS: ketorolac 30 mg/mL INJ IVP (09:05)
[2022-12-10] MEDS: alum-mag-hydroxide-sime 30 mL UDC PO (09:52)
[2022-12-10 11:15] VITALS: BP 166/77; PULSE 80; RESP 16; TEMP 36.5; O2SAT 94
== END 2022-12-10 11:17 | disposition home or self-care (01) | DRG 473 ==
LOC: MEDSURG 16:17
PROVIDERS: Admitting Provider Orthopaedic Surgery; PCP Family Medicine; Visit Provider Orthopaedic Surgery
PROC: 0RG20A0 Fusion of 2 or more Cervical Vertebral Joints with Interbody Fusion Device, Anterior Approach, Anterior Column, Open Approach (ICD-10-PCS; principal; 2022-12-09 12:25)
PROC: 0RB30ZZ Excision of Cervical Vertebral Disc, Open Approach (ICD-10-PCS; CPT 22551; 2022-12-09 12:25)
DX: M47.12 Other spondylosis with myelopathy, cervical region (principal); I35.1 Nonrheumatic aortic (valve) insufficiency; E78.5 Hyperlipidemia, unspecified; Z98.1 Arthrodesis status; Z87.891 Personal history of nicotine dependence
CPT/HCPCS: 72020; 72040; 76000; 97110; 97161; 97166; 97530; C1713; C9359; J0330; J0360; J1100; J1200; J1885; J2405; J2704; J3010; J3370; J3490; J7030; J7050; J7120

== ENCOUNTER 2022-12-11 06:00 | Outpatient (RCR) | payer MEDICARE, MEDICAID, SELFPAY | END 2023-01-09 23:59 | disposition home or self-care (01) | LOC: SOT 06:00 | PROVIDERS: PCP Family Medicine; Visit Provider Student in an Organized Health Care Education/Training Program | DX: Z47.89 Encounter for other orthopedic aftercare (principal) | CPT/HCPCS: 97110; 97140 ==

== ENCOUNTER 2022-12-17 03:47 | Emergency (ER) | payer MEDICARE, MEDICAID, SELFPAY ==
[2022-12-17 04:13] VITALS: BP 168/111; PULSE 79; RESP 18; TEMP 36.7; O2SAT 94; BMI 31.4
--- NOTE | 2022-12-17 04:23 | ED_ITS ---
HPI - Neck Pain/Injury General: Chief Complaint: Neck Pain/Injury Stated Complaint: Neck Pain From Surgery Time Seen by Provider: 12/17/22 04:16 History of Present Illness: Patient presents to the ER with complaints of right-sided neck pain that radiates down into his right arm. Patient said this woke him up from sleep about 1:00 today. Patient already taken 2 of his hydrocodone 5/325 with no relief. Patient had neck surgery by Dr. Garcia 1 week ago today. He does have a follow-up appointment with him for another 5 days. Patient was doing well up until tonight. Review of Systems General: Reports: 10 or more systems reviewed and unremarkable except in HPI and below PFSH ED PFSH: Medical History Aortic regurgitation Cervical disc disorder with myelopathy of mid-cervical region Dyslipidemia Surgical History History of lumbar laminectomy (08/10/16) Dr. Pepper L4-L5, L5-S1 laminectomy with pedicle screw/nathalie fixation and transverse process fusion. History of lumbar spinal fusion Family History Mother Heart disease 62 years of age Father Unknown family medical history Denies family history of Clotting disorder Anesthesia complication Bleeding disorder Social History Smoking and tobacco status: former smoker Second hand smoke exposure: No Smoking risk assessment/counseling performed?: No Alcohol intake: never Desire information about alcohol rehabilitation?: No Counseling given: No Substance/Drug Use: current Substance/Drug use frequency: daily Desire information about substance/drug rehabilitation?: No Caregiver/support person: No Lives independently: Yes Household members: significant other Housing: House Marital status: Single service: No Current occupational status: disabled Do you think of yourself as: Straight/Heterosexual Current gender identity: Male Physical Exam Const: COMMON NORMALS: no acute distress, average body habitus, patient oriented x3, no limitations, healthy appearing, alert and well nourished HENMT: COMMON NORMALS: normocephalic, atraumatic, hearing grossly normal bilaterally, external ears normal, Normal external nose present and moist oral mucous membranes HEAD & SCALP: normocephalic and atraumatic NOSE: Normal external nose present EXTERNAL EAR: Yes external ears normal Eye: COMMON NORMALS: Equal, round and reactive pupils present, EOMs intact bilaterally, conjunctivae normal and no scleral icterus CONJUNCTIVA: Yes conjunctivae normal PUPIL: Yes Equal, round and reactive pupils present Neck/C-Spine: COMMON NORMALS: no JVD OTHER: In a [place] J collar, tenderness to palpations along right-sided trapezius muscle region. Chest: COMMONS NORMALS: normal inspection of the chest Resp: COMMON NORMALS: normal respiratory effort, No retractions and No use of accessory muscles Cardio: COMMON NORMALS: no JVD, regular rate and regular rhythm RATE: regular rate RHYTHM: regular rhythm Neuro: COMMON NORMALS: patient oriented x3 SENSORIUM/ORIENTATION: Yes alert Course Vital Signs: Vital signs: Vital Signs Temperature 98.1 F 12/17/22 04:13 Pulse Rate 86 12/17/22 05:16 Respiratory Rate 20 H 12/17/22 05:16 Blood Pressure 119/98 12/17/22 05:16 Pulse Oximetry 96 12/17/22 05:16 Oxygen Delivery Me thod Room Air 12/17/22 04:13 MDM - Neck Pain/Injury Medical Decision Making Patient presented to the ER after waking up with pain in his neck. No new neck trauma. Patient had surgery 1 week ago. Patient took a couple of [place] before he came to the ER today. Patient was given Norflex 60 mg IM which did not help. Patient was given 4 mg morphine IM which anticipate improvement. Anticipate patient will be discharged home to follow-up with his PCP and continue take his [place] that he has at home. Differential Diagnosis Unlikely disc disorder of cervical region, whiplash injury to neck, closed subluxation of cervical spine, fracture of cervical spine without lesion of spinal cord, cervical radiculopathy, vertebral artery dissection, torticollis, cervical spondylosis or strain of neck muscle Medical Records I reviewed the patient's medical records. Lab Data I reviewed the patient's lab results. Discharge Plan Discharge Patient Disposition: Home Clinical Impression: Neck pain Condition: Stable Prescriptions: No Action ergocalciferol (vitamin D2) [Vitamin D2] 1,250 mcg (50,000 unit) capsule 1,250 mcg PO .weekly (DME) Cervical Collar See Rx Instructions .Route .MEDSUPPLY Qty: 1 0RF Rx Instructions: As directed (DME) hinged right elbow brace See Rx Instructions .Route .MEDSUPPLY Qty: 1 0RF Rx Instructions: As directed (DME) [id number] Bone Growth Stimulator See Rx Instructions .Route .MEDSUPPLY Qty: 1 0RF Rx Instructions: As directed hydrocodone-acetaminophen 5-325 mg tablet 1 - 2 tab PO .q4-6hrs PRN (Reason: Postoperative pain) 7 Days Qty: 40 0RF Discharge Orders: Discharge ED (Routine); Ordered 12/17/22 Ordered By: Joel Escobar Referrals: Raj Dobbins DO [Primary Care Provider] - 1 week Patient Instructions: Neck Pain (ED) Activity Restrictions/Additional Instructions: Please continue take your hydrocodone as needed for pain please continue to wear your [place] J collar. Please follow-up with your family practice doctor and orthopedic doctor as recommended. If your pain worsens or continues to be uncontrolled please feel free to return to the ER for further evaluation. Coding Level of Care Code ED Roll Grinder Operator for Melecio Pires
[2022-12-17] MEDS: orphenadrine 30 mg/mL Inj 2 mL 60 MG IM (04:28)
[2022-12-17 04:31] VITALS: BP 134/111; PULSE 75; RESP 16; O2SAT 93
[2022-12-17 05:16] VITALS: BP 119/98; PULSE 86; RESP 20; O2SAT 96
[2022-12-17] MEDS: morphine 4 mg/mL SDV 1 mL IM (05:16)
[2022-12-17 05:36] VITALS: BP 164/106
== END 2022-12-17 05:37 | disposition home or self-care (01) ==
PROVIDERS: Emergency Provider Emergency Medicine; PCP Family Medicine
DX: M54.2 Cervicalgia (principal); Z87.891 Personal history of nicotine dependence; E78.5 Hyperlipidemia, unspecified
CPT/HCPCS: 72040; 96372; 99024; 99284; J2270; J2360

== ENCOUNTER → 2022-12-22 09:45 | Outpatient (BNVA) | payer MEDICARE, MEDICAID, SELFPAY | PROVIDERS: PCP Family Medicine; Visit Provider Physician Assistant | DX: Z47.89 Encounter for other orthopedic aftercare; Z98.1 Arthrodesis status; S46.219A Strain of muscle, fascia and tendon of other parts of biceps, unspecified arm, initial encounter; X58.XXXA Exposure to other specified factors, initial encounter | CPT/HCPCS: 72040; 99024 ==

== ENCOUNTER → 2023-01-05 07:36 | Outpatient (BNVA) | payer MEDICARE, MEDICAID, SELFPAY | PROVIDERS: PCP Family Medicine; Visit Provider Student in an Organized Health Care Education/Training Program | DX: S46.211A Strain of muscle, fascia and tendon of other parts of biceps, right arm, initial encounter; X58.XXXA Exposure to other specified factors, initial encounter | CPT/HCPCS: 99213 ==

== ENCOUNTER 2023-01-10 06:00 | Outpatient (RCR) | payer MEDICARE, MEDICAID, SELFPAY | END 2023-02-09 23:59 | disposition home or self-care (01) | LOC: SOT 06:00 | PROVIDERS: PCP Family Medicine; Visit Provider Student in an Organized Health Care Education/Training Program | DX: Z51.89 Encounter for other specified aftercare (principal) | CPT/HCPCS: 97110; 97140 ==

== ENCOUNTER → 2023-01-19 10:58 | Outpatient (BNVA) | payer MEDICARE, MEDICAID, SELFPAY | PROVIDERS: PCP Family Medicine; Visit Provider Orthopaedic Surgery | DX: Z98.1 Arthrodesis status (principal); Z47.89 Encounter for other orthopedic aftercare | CPT/HCPCS: 72040; 99024 ==

== ENCOUNTER 2023-01-21 16:38 | Outpatient (CLI) | payer MEDICARE, MEDICAID, SELFPAY ==
--- NOTE | 2023-01-21 16:45 | MRR_ITS ---
PROCEDURE INFORMATION: Exam: MR Cervical Spine Without Contrast Exam date and time: 01/21/2023 4:52 PM Age: 52 years old Clinical indication: Neck pain; Prior surgery; Surgery date: <1 month; Surgery type: Fusion; Additional info: Post operative TECHNIQUE: Imaging protocol: Magnetic resonance imaging of the cervical spine without contrast. COMPARISON: MR cervical spin wo con* [id number] 12/16/2021 7:35 AM FINDINGS: Bones/joints: Artifact from ACDF hardware at the C3-C5 segment noted. No acute fracture. No spinal malalignment. No significant disc bulge or herniation. No severe spinal canal stenosis. Moderate bilateral neural foraminal stenosis at the C3-C4 and mild bilateral neural foraminal stenosis at C5-C6. Spinal cord: Normal signal. No cord compression. Vasculature: Expected flow voids in the vertebral arteries. Soft tissues: Unremarkable MR/MR cervical spin wo con* [id number] IMPRESSION: ACDF hardware noted within the C3-C5 segment. No severe spinal canal stenosis. Neural foraminal stenosis present, most significant at C3-C4, with moderate bilateral stenosis.
== END 2023-01-21 16:39 | disposition home or self-care (01) ==
LOC: RAD 16:39
PROVIDERS: PCP Family Medicine; Visit Provider Orthopaedic Surgery
DX: Z98.1 Arthrodesis status (principal); M48.02 Spinal stenosis, cervical region
CPT/HCPCS: 72141

== ENCOUNTER → 2023-02-04 08:40 | Outpatient (BNVA) | payer MEDICARE, MEDICAID, SELFPAY | PROVIDERS: PCP Family Medicine; Visit Provider Orthopaedic Surgery | DX: Z98.1 Arthrodesis status (principal) | CPT/HCPCS: 99024 ==

== ENCOUNTER 2023-02-10 06:00 | Outpatient (RCR) | payer MEDICARE, MEDICAID, SELFPAY | END 2023-03-11 23:59 | disposition home or self-care (01) | LOC: SOT 06:00 | PROVIDERS: PCP Family Medicine; Visit Provider Student in an Organized Health Care Education/Training Program | DX: Z47.89 Encounter for other orthopedic aftercare (principal) | CPT/HCPCS: 97110; 97140 ==

== ENCOUNTER → 2023-03-11 09:34 | Outpatient (BNVA) | payer MEDICARE, MEDICAID, SELFPAY | PROVIDERS: PCP Family Medicine; Visit Provider Anesthesiology Pain Medicine | DX: M43.12 Spondylolisthesis, cervical region (principal); M50.920 Unspecified cervical disc disorder, mid-cervical region, unspecified level; M54.12 Radiculopathy, cervical region; M54.16 Radiculopathy, lumbar region; Z98.1 Arthrodesis status; M50.020 Cervical disc disorder with myelopathy, mid-cervical region, unspecified level | CPT/HCPCS: 99214 ==

== ENCOUNTER 2023-03-12 06:00 | Outpatient (RCR) | payer MEDICARE, MEDICAID, SELFPAY | END 2023-04-11 23:59 | disposition home or self-care (01) | LOC: SOT 06:00 | PROVIDERS: PCP Family Medicine; Visit Provider Student in an Organized Health Care Education/Training Program | DX: Z47.89 Encounter for other orthopedic aftercare (principal) | CPT/HCPCS: 97110 ==

== ENCOUNTER → 2023-04-14 08:52 | Outpatient (BNVA) | payer MEDICARE, MEDICAID, SELFPAY | PROVIDERS: PCP Family Medicine; Visit Provider Family Medicine | DX: G47.00 Insomnia, unspecified (principal); G25.81 Restless legs syndrome; N40.1 Benign prostatic hyperplasia with lower urinary tract symptoms; N13.8 Other obstructive and reflux uropathy; E55.9 Vitamin D deficiency, unspecified; Z12.5 Encounter for screening for malignant neoplasm of prostate; E78.2 Mixed hyperlipidemia | CPT/HCPCS: 80053; 80061; 81000; 82306; 84443; 85027; 87086; G0103 ==

== ENCOUNTER → 2023-05-11 09:46 | Outpatient (BNVA) | payer MEDICARE, MEDICAID, SELFPAY | PROVIDERS: PCP Family Medicine; Visit Provider Anesthesiology Pain Medicine | DX: M54.12 Radiculopathy, cervical region (principal); M43.12 Spondylolisthesis, cervical region; M50.020 Cervical disc disorder with myelopathy, mid-cervical region, unspecified level; Z98.1 Arthrodesis status; M54.9 Dorsalgia, unspecified | CPT/HCPCS: 99214 ==

== ENCOUNTER → 2023-06-08 10:45 | Outpatient (BNVA) | payer MEDICARE, MEDICAID, SELFPAY | PROVIDERS: PCP Family Medicine; Visit Provider Anesthesiology Pain Medicine | DX: M50.920 Unspecified cervical disc disorder, mid-cervical region, unspecified level; M43.12 Spondylolisthesis, cervical region; M54.12 Radiculopathy, cervical region; M50.020 Cervical disc disorder with myelopathy, mid-cervical region, unspecified level; Z98.1 Arthrodesis status | CPT/HCPCS: 99214 ==

== ENCOUNTER → 2023-06-15 14:55 | Outpatient (BNVA) | payer MEDICARE, MEDICAID, SELFPAY | PROVIDERS: PCP Family Medicine; Visit Provider Anesthesiology Pain Medicine | DX: M79.18 Myalgia, other site (principal); M50.920 Unspecified cervical disc disorder, mid-cervical region, unspecified level; M54.9 Dorsalgia, unspecified; M43.12 Spondylolisthesis, cervical region; Z98.1 Arthrodesis status; M50.020 Cervical disc disorder with myelopathy, mid-cervical region, unspecified level; M54.12 Radiculopathy, cervical region | CPT/HCPCS: 20553; 99214; J1030; J3490 ==

== ENCOUNTER → 2023-08-12 09:31 | Outpatient (BNVA) | payer MEDICARE, MEDICAID, SELFPAY | PROVIDERS: PCP Family Medicine; Visit Provider Anesthesiology Pain Medicine | DX: M50.920 Unspecified cervical disc disorder, mid-cervical region, unspecified level; M54.9 Dorsalgia, unspecified; M43.12 Spondylolisthesis, cervical region; Z98.1 Arthrodesis status; M50.020 Cervical disc disorder with myelopathy, mid-cervical region, unspecified level; M54.12 Radiculopathy, cervical region; R07.9 Chest pain, unspecified; Z01.818 Encounter for other preprocedural examination; I27.20 Pulmonary hypertension, unspecified; Z87.891 Personal history of nicotine dependence | CPT/HCPCS: 99213; 99214 ==

== ENCOUNTER → 2023-08-26 13:34 | Outpatient (BNVA) | payer MEDICARE, MEDICAID, SELFPAY | PROVIDERS: PCP Family Medicine; Visit Provider Anesthesiology Pain Medicine | DX: M79.18 Myalgia, other site (principal); M50.920 Unspecified cervical disc disorder, mid-cervical region, unspecified level; M43.12 Spondylolisthesis, cervical region; Z98.1 Arthrodesis status; M50.020 Cervical disc disorder with myelopathy, mid-cervical region, unspecified level; M54.12 Radiculopathy, cervical region | CPT/HCPCS: 20553; 99214; J1010; J3490 ==

== ENCOUNTER 2024-03-08 23:53 | Emergency (ER) | payer MEDICARE, MEDICAID, SELFPAY ==
[2024-03-09] VITALS: BP 130/103; PULSE 76; RESP 18; TEMP 36.4; O2SAT 97; BMI 30.7
[2024-03-09] MEDS: lidocaine-epi 2% 20 mL INJ INJECTION (00:03)
[2024-03-09] MEDS: tetanus-dipt-pertussis 0.5 mL SDV IM (00:10)
--- NOTE | 2024-03-09 00:10 | W.ED.WOUNDLC ---
HPI - Wound/Laceration General: Chief Complaint: Wound/Laceration Stated Complaint: Left Hand Injury Time Seen by Provider: 03/08/24 23:55 Source: patient Mode of arrival: ambulatory Limitations: no limitations History of Present Illness: Patient is a 54-year-old male who presents the emergency department after left hand laceration prior to arrival. Patient states he cut it on a pair of scissors by accident, no foreign body or contamination reported. Tetanus not up-to-date. Bleeding controlled on arrival with direct pressure. No distal neurovascular symptoms reported. Onset (ago): minute(s) Extremity Location: Left: hand Place: home Patient tetanus UTD: No Context: accidental Associated symptoms: Denies chills, fever(s), nausea or vomiting Related Data Home Medications Medication Instructions Recorded Confirmed oxymetazoline 0.05 % nasal mist 2 spray intranasal Q12H PRN 03/11/23 08/26/23 (Afrin (oxymetazoline)) naproxen sodium 220 mg capsule 220 mg PO BID PRN 06/15/23 08/26/23 (Aleve) Previous Rx's Medication Instructions Recorded amitriptyline 25 mg tablet See Rx Instructions PO .COMPLEX 08/18/23 PRN insomnia #60 tabs tizanidine 4 mg tablet 4 mg PO BID PRN muscle spasticity 08/26/23 #60 tabs sulfamethoxazole 800 1 tab PO DAILY 7 days #7 tabs 03/09/24 mg-trimethoprim 160 mg tablet (Bactrim DS) Allergies Allergy/AdvReac Type Severity Reaction Status Date / Time ropinirole Allergy Unknown Unknown Verified 03/09/24 00:03 oxycodone Allergy ADR-Dizzine Verified 03/09/24 00:03 ss tramadol AdvReac Severe Legs Verified 03/09/24 00:03 swelling cefazolin AdvReac Intermediate facial Verified 03/09/24 00:03 edema gabapentin AdvReac Unknown DIZZINESS Verified 03/09/24 00:03 pregabalin [From Lyrica] AdvReac FLORES Verified 03/09/24 00:03 Review of Systems General: Reports: 10 or more systems reviewed and unremarkable except in HPI and below Const: Denies: fever(s) or chills Card: Denies: chest pain Resp: Denies: dyspnea GI: Denies: abdominal pain, nausea, vomiting or diarrhea Musc: Denies: extremity pain or joint pain Skin/Breast: Reports: new lesions (Laceration to left hand); Denies: rash, skin pain or skin tenderness Neuro: Denies: headache(s) PFSH ED PFSH: Medical History Dyslipidemia Aortic regurgitation 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 Pepper L4-L5, L5-S1 laminectomy with pedicle screw/nathalie fixation and transverse process fusion. Family History Mother Heart disease 62 years of age Father Unknown family medical history Denies family history of Clotting disorder Anesthesia complication Bleeding disorder Social History Smoking and tobacco/nicotine status: former use of tobacco/nicotine Second hand smoke exposure: No Alcohol intake: never Substance/Drug Use: current Substance/Drug use frequency: daily Caregiver/support person: No Lives independently: Yes Household members: significant other Housing: House Marital status: Single service: No Current occupational status: disabled Do you think of yourself as: Straight/Heterosexual Current gender identity: Male Physical Exam Const: COMMON NORMALS: no acute distress, average body habitus, patient oriented x3, no limitations, healthy appearing, alert and well nourished HENMT: COMMON NORMALS: normocephalic and atraumatic HEAD & SCALP: normocephalic and atraumatic Neck/C-Spine: COMMON NORMALS: full ROM, no lymphadenopathy, supple and no meningeal signs Resp: COMMON NORMALS: normal respiratory effort, No use of accessory muscles and clear to auscultation bilaterally AUSCULTATION: clear to auscultation bilaterally Cardio: COMMON NORMALS: regular rate and regular rhythm RATE: regular rate RHYTHM: regular rhythm Extremity: COMMON NORMALS: full ROM and capillary refill normal Neuro: COMMON NORMALS: patient oriented x3 SENSORIUM/ORIENTATION: Yes alert MENINGEAL SIGNS: Yes no meningeal signs Skin: COMMON NORMALS: turgor normal NARRATIVE SKIN EXAM: Superficial 2 cm laceration to the palmar aspect of the thenar eminence. No active bleeding or drainage. No foreign body or contamination. GENERAL SKIN EXAM: turgor normal Procedures Laceration Laceration 1: Site: hand Side (If applicable): left Size (cm): 2 Description: linear and clean Depth: simple, single layer Local Anesthetic: lidocaine 2% and with epi Amount of anesthesia used (mL): 1 Pre-repair: wound explored Skin layer closed with: nylon Size (cm): 5-0 Number of sutures: 3 Technique: simple, interrupted Course Vital Signs: Vital signs: Vital Signs Temperature 97.6 F 03/09/24 00:00 Pulse Rate 76 03/09/24 00:00 Respiratory Rate 18 03/09/24 00:00 Blood Pressure 130/103 03/09/24 00:00 Pulse Oximetry 97 03/09/24 00:00 [facility] - Wound/Laceration Medical Decision Making Patient suffered lacerations prior to arrival, this did appear clean and was prepped with chlorhexidine. Wound repaired without issue, will be started on prophylactic antibiotics and his tetanus was updated today. Discussed general signs and symptoms to watch for such as signs of infection, he endorses understanding and will follow-up with primary care for removal of sutures in 5 days. No radiology studies performed this visit Discharge Plan Discharge Patient Disposition: Home Clinical Impression: Laceration of hand, left Condition: Stable Prescriptions: New sulfamethoxazole-trimethoprim [Bactrim DS] 800-160 mg tablet 1 tab PO DAILY 7 Days Qty: 7 0RF No Action Afrin (oxymetazoline) 0.05 % mist 2 spray intranasal Q12H PRN naproxen sodium [Aleve] 220 mg capsule 220 mg PO BID PRN tizanidine 4 mg tablet 4 mg PO BID PRN (Reason: muscle spasticity) Qty: 60 0RF amitriptyline 25 mg tablet See Rx Instructions PO .COMPLEX PRN (Reason: insomnia) Qty: 60 2RF Rx Instructions: Take 1-2 tablets at bedtime as needed for insomnia. Discharge Orders: Discharge ED (Routine); Ordered 03/09/24 Ordered By: Yandel Moon Referrals: Raj Dobbins DO [Primary Care Provider] - Patient Instructions: Laceration (ED) Activity Restrictions/Additional Instructions: Sutures out in 5 days. Antibiotics as prescribed. Tetanus was updated today 03/09/2024. Monitor for any signs of infection and return as needed. When you clean the wound, dab lightly with warm soap and water, and then dab dry afterwards. 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
[2024-03-09] MEDS: sulfamethoxazole-trimeth DS 160-800 mg Tablet 1 TAB PO (00:11)
[2024-03-09 00:17] VITALS: BP 130/103; PULSE 80; RESP 16; O2SAT 94
[2024-03-09 00:18] VITALS: BP 130/103; PULSE 83; O2SAT 93
== END 2024-03-09 00:21 | disposition home or self-care (01) ==
PROVIDERS: Emergency Provider Physician Assistant; PCP Family Medicine
DX: S61.412A Laceration without foreign body of left hand, initial encounter (principal); W27.2XXA Contact with scissors, initial encounter; E78.5 Hyperlipidemia, unspecified; Z87.891 Personal history of nicotine dependence
CPT/HCPCS: 12001; 90715; 99283

== ENCOUNTER 2024-03-28 07:37 | Inpatient (IN) | payer MEDICARE, MEDICAID, SELFPAY ==
[2024-03-28] VITALS (9 sets, daily range): BP systolic 115–134; BP diastolic 75–82; PULSE 76–87; RESP 15–18; TEMP 37–37.3; O2SAT 93–99; BMI 29.8
--- NOTE | 2024-03-28 08:14 | W.ED.ABDPA2 ---
HPI - Abdominal Pain General: Chief Complaint: Abdominal Pain Stated Complaint: right side abdominal pain Time Seen by Provider: 03/28/24 07:39 History of Present Illness: 54-year-old male presents emergency room with complaints of right flank and right lower quadrant abdominal pain. Began about a week ago progressively worsened initially was more right-sided and now is localized to the right lower quadrant specifically. He has been a little constipated he had a little bit of diarrhea after taking some laxatives and attempt to stimulate a bowel movement and then passed some large hard stool. He had a lot of eructations and nausea. He did report a little bit of relief of symptoms after bowel movement he denies any hematuria dysuria urgency or frequency no fever sweats or chills no shortness of breath or chest pain Associated Symptoms: Denies chills, dysuria and fever(s) Related Data Home Medications Medication Instructions Recorded Confirmed oxymetazoline 0.05 % nasal mist 2 spray intranasal Q12H PRN 03/11/23 03/28/24 (Afrin (oxymetazoline)) allergies naproxen sodium 220 mg capsule 220 mg PO BID PRN Pain 06/15/23 03/28/24 (Aleve) docusate sodium 100 mg capsule 100 mg PO BID 03/28/24 03/28/24 hydrocodone 5 mg-acetaminophen 325 1 tab PO Q6H PRN Pain 03/28/24 03/28/24 mg tablet Allergies Allergy/AdvReac Type Severity Reaction Status Date / Time ropinirole Allergy Unknown Unknown Verified 03/28/24 07:47 oxycodone Allergy ADR-Dizzine Verified 03/28/24 07:47 ss tramadol AdvReac Severe Legs Verified 03/28/24 07:47 swelling cefazolin AdvReac Intermediate facial Verified 03/28/24 07:47 edema gabapentin AdvReac Unknown DIZZINESS Verified 03/28/24 07:47 pregabalin [From Lyrica] AdvReac FLORES Verified 03/28/24 07:47 Review of Systems Const: Denies: fever(s) or chills Card: Denies: chest pain Resp: Denies: dyspnea GI: Denies: abdominal pain : Denies: dysuria, urinary frequency or urinary urgency Musc: Denies: neck pain or back pain Skin/Breast: Denies: rash PFSH ED PFSH: Medical History Dyslipidemia Aortic regurgitation 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 Pepper L4-L5, L5-S1 laminectomy with pedicle screw/nathalie fixation and transverse process fusion. Family History Mother Heart disease 62 years of age Father Unknown family medical history Denies family history of Clotting disorder Anesthesia complication Bleeding disorder Social History Smoking and tobacco/nicotine status: former use of tobacco/nicotine Second hand smoke exposure: No Alcohol intake: never Substance/Drug Use: current Substance/Drug use frequency: daily Caregiver/support person: No Lives independently: Yes Household members: significant other Housing: House Marital status: Single service: No Current occupational status: disabled Do you think of yourself as: Straight/Heterosexual Current gender identity: Male Physical Exam Const: GENERAL APPEARANCE: cooperative ORIENTATION/CONSCIOUSNESS: Yes awake, Yes oriented to person, Yes oriented to place and Yes oriented to time HENMT: COMMON NORMALS: normocephalic, atraumatic and hearing grossly normal bilaterally HEAD & SCALP: normocephalic and atraumatic Resp: COMMON NORMALS: normal respiratory effort, No retractions, No use of accessory muscles and clear to auscultation bilaterally AUSCULTATION: clear to auscultation bilaterally Cardio: COMMON NORMALS: regular rate, regular rhythm and No murmurs present (Cardio) RATE: regular rate RHYTHM: regular rhythm GI: COMMON NORMALS: No hepatosplenomegaly present AUSCULTATION: Yes normoactive bowel sounds PALPATION: Yes Tenderness to palpation present (GI) Details: RLQ, No Guarding due to palpation present (GI) and Yes No hepatosplenomegaly present Extremity: COMMON NORMALS: normal to inspection, capillary refill normal, no clubbing, cyanosis or edema, no calf tenderness and no pedal edema Neuro: SENSORIUM/ORIENTATION: Yes oriented to person, Yes oriented to place and Yes oriented to time Skin: COMMON NORMALS: no rashes or lesions noted GENERAL SKIN EXAM: no rashes or lesions noted Course Vital Signs: Vital signs: Vital Signs Temperature 99.0 F 03/28/24 07:52 Pulse Rate 78 03/28/24 10:22 Respiratory Rate 16 03/28/24 10:22 Blood Pressure 130/82 03/28/24 10:22 Pulse Oximetry 99 03/28/24 10:22 MDM - Abdominal Pain Medical Decision Making Acute appendicitis. Initial CT done there is question of see colitis versus an acute appendicitis. Dr. Bell requested repeat CT with contrast he suspects that the patient may have had a appendiceal rupture and has a phlegmon there now. Will admit for IV antibiotics discussed Dr. Bell orders written Medical Records I reviewed the patient's medical records. Lab Data I reviewed the patient's lab results. 03/28/24 08:00 03/28/24 08:00 Labs/Radiology: Radiology Impressions Abdomen/Pelvis CT 03/28/24 09:57 Impression: 1. Right lower quadrant fluid collection with questionable stone which could represent an inflammatory mass. 2. Negative for renal or ureteral calculi. Laboratory Results WBC 12.64 10^3/uL (3.29-11.43) H 03/28/24 08:00 RBC 4.63 10^6/uL (3.85-5.65) 03/28/24 08:00 Hgb 13.90 g/dL (11.27-16.99) 03/28/24 08:00 Hct 40.9 % (37-53) 03/28/24 08:00 MCV 88.3 fl (82-101) 03/28/24 08:00 MCH 30.0 pg (27-33) 03/28/24 08:00 MCHC 34.0 g/dL (30-55) 03/28/24 08:00 RDW 12.9 % (12.1-15.1) 03/28/24 08:00 Plt Count 360 10^3/cmm (157-399) 03/28/24 08:00 MPV 8.4 fL (7.4-10.4) 03/28/24 08:00 Neut % (Auto) 72.5 % 03/28/24 08:00 Lymph % (Auto) 14.9 % 03/28/24 08:00 [place] % (Auto) 10.9 % 03/28/24 08:00 Eos % (Auto) 0.9 % 03/28/24 08:00 Baso % (Auto) 0.5 % 03/28/24 08:00 Neut # (Auto) 9.17 10^3/uL (1.8-7.7) H 03/28/24 08:00 Lymph # (Auto) 1.9 10^3/uL (0.8-4.8) 03/28/24 08:00 [place] # (Auto) 1.4 10^3/uL (0.2-0.9) H 03/28/24 08:00 Eos # (Auto) 0.1 10^3/uL (0.0-0.8) 03/28/24 08:00 Baso # (Auto) 0.1 10^3/uL (0.0-0.1) 03/28/24 08:00 Nucleated RBC % (auto) 0 % 03/28/24 08:00 Nucleated RBCs # 0.0 /100WBC 03/28/24 08:00 Sodium 136 mmol/L (136-145) 03/28/24 08:00 Potassium 4.6 mmol/L (3.5-5.1) 03/28/24 08:00 Chloride 98 mmol/L (98-107) 03/28/24 08:00 Carbon Dioxide 27 mmol/L (22-29) 03/28/24 08:00 Anion Gap 15.6 (5-19) 03/28/24 08:00 BUN 8 mg/dL (6-20) 03/28/24 08:00 Creatinine 0.8 mg/dL (0.7-1.2) 03/28/24 08:00 GFR Calculation 101.5 mL/min (90-130) 03/28/24 08:00 Glucose 138 mg/dL (65-115) H 03/28/24 08:00 Calculated Osmolality 283 mOsm/kg (285-295) L 03/28/24 08:00 Calcium 9.6 mg/dL (8.5-10.5) 03/28/24 08:00 Total Bilirubin 0.4 mg/dL (0.15-1.2) 03/28/24 08:00 AST 46 U/L (0-40) H 03/28/24 08:00 ALT 91 U/L (0-41) H 03/28/24 08:00 Alkaline Phosphatase 158 U/L (40-130) H 03/28/24 08:00 Total Protein 7.8 g/dL (6.6-8.7) 03/28/24 08:00 Albumin 4.2 g/dL (3.5-5.2) 03/28/24 08:00 Globulin 3.6 g/dL (1.3-4.6) 03/28/24 08:00 Lipase 17 U/L (13-60) 03/28/24 08:00 Urine Color Yellow (Yellow) 03/28/24 08:17 Urine Appearance Clear (CLEAR) 03/28/24 08:17 Urine pH 6.0 (5-7) 03/28/24 08:17 Ur Specific [place] 1.011 (1.005-1.030) 03/28/24 08:17 Urine Protein Negative (Negative) 03/28/24 08:17 Urine Glucose (UA) Negative (Normal) 03/28/24 08:17 Urine Ketones Negative (Negative) 03/28/24 08:17 Urine Blood Negative (Negative) 03/28/24 08:17 Urine Nitrate Negative (Negative) 03/28/24 08:17 Urine Bilirubin Negative (Negative) 03/28/24 08:17 Urine Urobilinogen 1.0 mg/dL (Negative) 03/28/24 08:17 Ur Leukocyte Esterase Negative (Negative) 03/28/24 08:17 Urine RBC 0-2 /hpf (0-2) 03/28/24 08:17 Urine WBC 0-5 /hpf (0-5) 03/28/24 08:17 Ur Squamous Epith Cells 0-5 /hpf (0-5) 03/28/24 08:17 Amorphous Sediment Not Reportable 03/28/24 08:17 Urine Bacteria None seen /hpf (NONE) 03/28/24 08:17 Hyaline Casts 0.40 /lpf 03/28/24 08:17 All radiology interpretation(s) finalized by discharge Discharge Plan Discharge Patient Disposition: Admitted As Inpatient Admit Provider: Yandel Bell Clinical Impression: Acute appendicitis Condition: Stable 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
[2024-03-28 08:16] LABS: Basophils # 0.1 10^3/uL (0.0-0.1); Basophils % 0.5 %; Eosinophils # 0.1 10^3/uL (0.0-0.8); Eosinophils % 0.9 %; Hematocrit 40.9 % (37-53); Lymphocytes # 1.9 10^3/uL (0.8-4.8); Lymphocytes % 14.9 %; Mean Corpuscular Volume 88.3 fl (82-101); Mean Platelet Volume 8.4 fL (7.4-10.4); Monocytes # 1.4 10^3/uL (0.2-0.9); Monocytes % 10.9 %; Neutrophils # 9.17 10^3/uL (1.8-7.7); Neutrophils % 72.5 %; Nucleated Red Blood Cells % 0 %; Platelet Count 360 10^3/cmm (157-399); Red Blood Count 4.63 10^6/uL (3.85-5.65); Red Cell Distribution Width 12.9 % (12.1-15.1); White Blood Count 12.64 10^3/uL (3.29-11.43)
--- NOTE | 2024-03-28 08:18 | CT_ITS ---
WS: [id number] CT scan of the abdomen and pelvis without Oral and IV contrast. Additional two-dimensional coronal an d sagittal reconstruction was performed. 03/28/2024 Clinical Data: R flank pain Comparison: None. DLP: 722.[address] scans at [facility] use at least one of these dose optimization techniques: automated e xposure control; mA and/or kV adjustment per patient size (includes targeted exams where dose is matc hed to clinical indication); or iterative reconstruction. Findings: The lower lungs show no nodules, masses or effusions. The liver, gallbladder, spleen, adrenal glands and pancreas are normal. The kidneys show no cyst or masses. No renal calculi hydronephrosis or hydroureter is seen. There ar e no ureteral calculi. The abdominal aorta is normal in size with minimal calcification. There is right lower quadrant fluid which could represent inflammatory change from appendicitis and/o r cecitis. No free air or fluid levels are seen in this right lower quadrant fluid collection The bladder is unremarkable. Prostate is enlarged with minimal calcification. No inguinal hernia is s een. There is a fusion of the L4-L5 and S1 vertebra with a spondylolisthesis at L5-S1.100. CT/CT kidney stone [id number] Impression: 1. Right lower quadrant fluid collection which could represent acute appendicit is or cecitis. 2. Negative for renal or ureteral calculi.
[2024-03-28 08:26] LABS: Alanine Aminotransferase 91 U/L (0-41); Albumin Level 4.2 g/dL (3.5-5.2); Alkaline Phosphatase 158 U/L (40-130); Anion Gap 15.6 (5-19); Aspartate Amino Transferase 46 U/L (0-40); Carbon Dioxide 27 mmol/L (22-29); Chloride 98 mmol/L (98-107); Globulin 3.6 g/dL (1.3-4.6); Glucose 138 mg/dL (65-115); Lipase 17 U/L (13-60); Potassium 4.6 mmol/L (3.5-5.1); Sodium 136 mmol/L (136-145); Total Bilirubin 0.4 mg/dL (0.15-1.2); Total Protein 7.8 g/dL (6.6-8.7)
[2024-03-28 08:34] LABS: Bilirubin Urine Negative (Negative); Blood Urine Negative (Negative); Glucose Urine UA Negative (Normal); Ketones Urine Negative (Negative); Leukocyte Esterase Urine Negative (Negative); Nitrate Urine Negative (Negative); Protein Urine Negative (Negative); Specific Gravity, Urine 1.011 (1.005-1.030); Urine Appearance Clear (CLEAR); Urine Color Yellow (Yellow)
[2024-03-28 08:39] LABS: Blood Urea Nitrogen 8 mg/dL (6-20); Calcium 9.6 mg/dL (8.5-10.5); Creatinine Clr Calc Pharmacy 128.3449; Glomerular Filtration Rate 101.5 mL/min (90-130); Osmolality Calculated 283 mOsm/kg (285-295)
[2024-03-28 08:41] LABS: Add Urine Microscopic? YES; Bacteria Urine None Seen /hpf; RBC Urine 0-2 /hpf (0-2); Squamous Epithelial Cell Urine 0-5 /hpf (0-5); WBC Urine 0-5 /hpf (0-5)
--- NOTE | 2024-03-28 09:57 | CT_ITS ---
WS: [id number] CT scan of the abdomen and pelvis with IV contrast. Additional two-dimensional coronal and sagittal reconstruction was performed. 03/28/2024, 1005 hours Clinical Data: abd pain possible appendicitis Comparison: CT abdomen pelvis, 03/28/2024,0841 hours DLP: 723.[address] scans at [facility] use at least one of these dose optimization techniques: automated e xposure control; mA and/or kV adjustment per patient size (includes targeted exams where dose is matc hed to clinical indication); or iterative reconstruction. Findings: The lower lungs show no nodules, masses or effusions. The liver, gallbladder, spleen, adrenal glands and pancreas are normal. The kidneys show equal bilateral contrast excretion with no cyst or masses. The abdominal aorta is normal in size. The a right lower quadrant fluid collection shows a questionable stone which could represent an appen dicolith. There is variability between the the fluid and possible wall of this collection. The bladder is unremarkable. No inguinal hernia is seen. The lumbosacral fusion L4-S1 with a spondylolisthesis at L5-S1 is again noted. CT/CT abdomen pelvis w con* [id number] Impression: 1. Right lower quadrant fluid collection with questionable stone which could re present an inflammatory mass. 2. Negative for renal or ureteral calculi.
[2024-03-28] MEDS: iohexol 350 mg/mL 500 mL Btl (per mL) IV (10:05)
[2024-03-28] MEDS: ketorolac 30 mg/mL INJ IVP (10:14)
[2024-03-28] MEDS: piperacillin-tazobactam 3.375 GM in sodium chloride 0.9% (plus) 50 ML IV ×3 (10:17→23:35)
--- NOTE | 2024-03-28 10:41 | P.HP_ITS ---
Providers/Chief Complaint 2 Primary Care Provider: Raj Dobbins DO Chief Complaint: right side abdominal pain History of Present Illness Barry Landry is a 54 year old male who presents with 7 days of abdominal pain in the right lower quadrant, pain initially subsided and then over the last 24 hours has become severe, he denies any significant medical problems, has had some nausea no vomit has been constipated took some stool softeners to have a bowel movement. His white count was elevated to 12 CT in the ER show evidence of a possible fluid collection versus inflammatory process in the right lower quadrant was consulted for this finding. Review of Systems 2 General: Reports: 10 or more systems reviewed and unremarkable except in HPI and below Medications/Allergies Home Medications Medication Instructions Recorded Confirmed Last Taken Type oxymetazoline 0.05 % nasal mist 2 spray intranasal Q12H PRN 03/11/23 03/28/24 Unknown History (Afrin (oxymetazoline)) allergies naproxen sodium 220 mg capsule 220 mg PO BID PRN Pain 06/15/23 03/28/24 Unknown History (Aleve) docusate sodium 100 mg capsule 100 mg PO BID 03/28/24 03/28/24 03/27/24 History hydrocodone 5 mg-acetaminophen 325 1 tab PO Q6H PRN Pain 03/28/24 03/28/24 03/27/24 22:00 History mg tablet Allergies Allergy/AdvReac Type Severity Reaction Status Date / Time ropinirole Allergy Unknown Unknown Verified 03/28/24 07:47 oxycodone Allergy ADR-Dizzine Verified 03/28/24 07:47 ss tramadol AdvReac Severe Legs Verified 03/28/24 07:47 swelling cefazolin AdvReac Intermediate facial Verified 03/28/24 07:47 edema gabapentin AdvReac Unknown DIZZINESS Verified 03/28/24 07:47 pregabalin [From Lyrica] AdvReac FLORES Verified 03/28/24 07:47 PFSH Acute 2 PFSH: Medical History Dyslipidemia Aortic regurgitation 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 Pepper L4-L5, L5-S1 laminectomy with pedicle screw/nathalie fixation and transverse process fusion. Family History Mother Heart disease 62 years of age Father Unknown family medical history Denies family history of Clotting disorder Anesthesia complication Bleeding disorder Social History Smoking and tobacco/nicotine status: former use of tobacco/nicotine Second hand smoke exposure: No Alcohol intake: never Substance/Drug Use: current Substance/Drug use frequency: daily Caregiver/support person: No Lives independently: Yes Household members: significant other Housing: House Marital status: Single service: No Current occupational status: disabled Do you think of yourself as: Straight/Heterosexual Current gender identity: Male Vitals/I&O/Wt Last Vital Signs Temp 99.0 F 03/28/24 07:52 Pulse 78 03/28/24 10:22 Resp 16 03/28/24 10:22 BP 130/82 03/28/24 10:22 Pulse Ox 99 03/28/24 10:22 03/27/24 03/28/24 03/28/24 22:59 06:59 14:59 Intake Total 0 / 0 Balance 0 / 0 Weight last 48 hrs Weight 214 lb Physical Exam 2 Narrative: General : Patient is well developed , no acute distress, oriented x3 Head : Normal cephalic, a-traumatic. Nose : Mucous membranes are without erythema. Lungs : Equal chest rise bilaterally, no use of accessory muscles, trachea is midline. CV : Rate and rhythm are normal. Abdomen : Soft, localized tenderness in the right lower quadrant no peritonitis no rebound. Extremities : No edema. Upper extremities are normal bilaterally. Back : non-tender to palpation, no CVA tenderness. Data 03/28/24 08:00 03/28/24 08:00 Micro: Microbiology 03/28/24 10:21 Blood Culture - Preliminary Blood SPECIMEN COLLECTED 03/28/24 10:17 Blood Culture - Preliminary Blood SPECIMEN COLLECTED A&P Assessment and plan (1) Acute phlegmonous appendicitis: Plan Is a 54-year-old male who presents to the ER with abdominal pain, he has been having abdominal pain for more than 7 days but worse in the last 24 hours. Imaging was done without contrast has we were suspecting the possibility of a stone and imaging show evidence of a possible fluid collection in the right lower quadrant. After my evaluation of the patient I asked for a repeat CT scan with IV contrast which shows a inflammatory mass on the right lower quadrant with no drainable fluid collection. This is consistent with possible phlegmonous acute appendicitis, patient likely developed acute appendicitis that perforated 1 week ago and infection has been contained at this time by the surrounding organs. I have explained to the patient that the management of phlegmonous acute appendicitis initially with IV fluid therapy and antibiotics and indicates a failure of therapy will require to repeat a CAT scan to evaluate for the possibility of abscess and if there is an abscess patient can have a IR drainage if there is worsening of clinical status without a drainable abscess he may require surgery for possible resection. Patient will be admitted to the hospital, he will be kept n.p.o. today I will start broad-spectrum antibiotics and IV fluids. I will start pain control with NSAID and also as needed opiate. Attestations 2 Medical Necessity Statement*: Patient will require 3 to 5 days of hospital stay for management of phlegmonous acute appendicitis Coding Level of Care Code 04182 Diagnoses Acute phlegmonous appendicitis K35.890
[2024-03-28] MEDS: pantoprazole 40 mg SDV IVP (11:53)
[2024-03-28] MEDS: lactated ringers 1,000 ML 125 ML IV ×2 (11:54→19:36)
--- NOTE | 2024-03-28 12:23 | PC.NURSE ---
This nurse took report from AIXA Pop in ER at 1220.
[2024-03-28] MEDS: morphine 4 mg/mL SDV 1 mL IVP ×2 (14:13→19:33)
[2024-03-28] MEDS: ketorolac 30 mg/mL INJ 15 MG IVP ×2 (15:26→23:34)
[2024-03-28] MEDS: ondansetron 2 mg/ML SDV 2 mL 4 MG IVP (19:43)
[2024-03-29] VITALS (8 sets, daily range): BP systolic 107–146; BP diastolic 64–88; PULSE 68–91; RESP 15–18; TEMP 36.3–37.3; O2SAT 90–98; BMI 29.5
[2024-03-29] MEDS: lactated ringers 1,000 ML 125 ML IV ×3 (03:45→18:07)
[2024-03-29] MEDS: ketorolac 30 mg/mL INJ 15 MG IVP ×4 (05:10→22:40)
[2024-03-29 05:15] LABS: Basophils # 0.1 10^3/uL (0.0-0.1); Basophils % 0.5 %; Eosinophils # 0.2 10^3/uL (0.0-0.8); Eosinophils % 1.5 %; Hematocrit 38.5 % (37-53); Lymphocytes % 15.6 %; Mean Corpuscular HGB Conc 32.5 g/dL (30-55); Mean Corpuscular Volume 92.5 fl (82-101); Mean Platelet Volume 8.8 fL (7.4-10.4); Monocytes # 1.1 10^3/uL (0.2-0.9); Monocytes % 8.6 %; Neutrophils # 9.27 10^3/uL (1.8-7.7); Neutrophils % 73.4 %; Nucleated Red Blood Cells % 0 %; Platelet Count 353 10^3/cmm (157-399); Red Blood Count 4.16 10^6/uL (3.85-5.65); Red Cell Distribution Width 12.9 % (12.1-15.1); White Blood Count 12.63 10^3/uL (3.29-11.43)
[2024-03-29 05:40] LABS: Blood Urea Nitrogen 13 mg/dL (6-20); Calcium 9.2 mg/dL (8.5-10.5); Carbon Dioxide 24 mmol/L (22-29); Chloride 100 mmol/L (98-107); Creatinine Clr Calc Pharmacy 113.5917; Glomerular Filtration Rate 88.6 mL/min (90-130); Glucose 101 mg/dL (65-115); Magnesium 1.9 mg/dL (1.7-2.3); Osmolality Calculated 280 mOsm/kg (285-295); Sodium 135 mmol/L (136-145)
[2024-03-29 05:42] LABS: Anion Gap 15.4 (5-19); Potassium 4.4 mmol/L (3.5-5.1)
[2024-03-29] MEDS: piperacillin-tazobactam 3.375 GM in sodium chloride 0.9% (plus) 50 ML IV ×2 (08:02→16:48)
--- NOTE | 2024-03-29 08:19 | P.PN_ITS ---
Subjective 2 Subjective: Today's hospital day 1 after being admitted with perforated acute appendicitis with phlegmon and abscess, we have started nonoperative management. Patient has been doing okay no significant abdominal pain no fever no chills is hungry this morning. Has been passing gas but has not had a bowel movement yet. Vitals/I&O/Wt Last Vital Signs Temp 97.8 F 03/29/24 07:11 Pulse 78 03/29/24 07:11 Resp 15 03/29/24 07:11 BP 112/69 03/29/24 07:11 Pulse Ox 95 03/29/24 07:11 O2 Del Method Room Air 03/29/24 07:11 03/28/24 03/29/24 03/29/24 22:59 06:59 14:59 Intake Total 1012.5 / 1062.5 1050 / 2112.5 Output Total 150 / 425 400 / 825 Balance 862.5 / 637.5 650 / 1287.5 Weight last 48 hrs Weight 212 lb Weight 214 lb Physical Exam 2 GI: OTHER: Abdominal examination is benign right lower quadrant tenderness and pain has significantly improved Data 03/29/24 04:29 03/29/24 04:29 Micro: Microbiology 03/28/24 10:21 Blood Culture - Preliminary Blood SPECIMEN COLLECTED 03/28/24 10:17 Blood Culture - Preliminary Blood SPECIMEN COLLECTED A&P Assessment and plan (1) Acute appendicitis: Plan Patient showing good progression with conservative management of perforated acute appendicitis with phlegmon and abscess, abscesses not big enough to be drained by IR, it measures less than 3 cm. I have explained to the patient that the plan will be to continue IV antibiotic therapy and monitor his vital signs and white count, his white count has been stable over the last 24 hours if there is any persisting uptrending we might need to repeat the CT scan to decide whether or not the patient will benefit from additional drainage. In the case of failure of conservative management patient will require to proceed to the OR for appendectomy and possible ileocecectomy. Patient shows understanding he is agreeable with the plan. If everything goes suspected patient will likely receive 3 to 5 days of IV antibiotics in the hospital before transition to the outpatient setting with p.o. antibiotics for 2 weeks, we will then repeat a CT scan of the abdomen pelvis to decide on Interval appendectomy. -Clear liquid diet today -Pain control -IV fluids -IV antibiotics -Repeat labs tomorrow Attestations 2 Medical Necessity Statement*: Patient will require 3 to 5 days of hospital stay for management of acute appendicitis with perforation, phlegmon and abscess. Coding Level of Care Code Acute Code for [facility] Diagnoses Acute appendicitis K35.80
[2024-03-29] MEDS: pantoprazole 40 mg SDV IVP (09:48)
--- NOTE | 2024-03-29 10:38 | PC.CHAP ---
Pastoral Care Encounter/Spiritual Assessment Type of Contact [] Declined ornamenter hand visit [] Patient/Family/Request visit [] Outpatient visit [] Follow-up visit [] Physician referral [] Code/Alert [x] Routine visit [] Staff referral [] Actively dying [] Patient sleeping [x] Family support [] [] Out of room [] Palliative care [] [] Receiving care in room [] Pre-surgical visit [] Trauma [] Long length of stay [] ICU visit [] Other: Relational/Emotional Strength [x] Patient feels connected with others/family/visitors/staff [] Distress [] Loneliness/isolation [] Abandonment Spirituality of Patient [x] Person of Erica [] Attends Lutheran of their Erica [x] Believes in Prayer [] Reads Bible or Jehovah'S Witness materials [] There are Spiritual issues to be addressed Inventory Controller Interventions [x] Prayer [x] Active listening [] Non-anxious presence [x] Spiritual/emotional support [] Crisis/trauma care [] Spiritual counseling [] Bereavement support [] Provided bereavement packet [] Provided Bible/devotional materials [] Provided toy/stuffed animal, coloring book to patient or family member [] Provided Communion [] Anointing/[place] [] Salvation [x] Completed spiritual assessment [] Other: Impact on Illness or Injury [] Angry [] Fearful [] Anxious [] Often cries [] Exhaustion [] Unable to work [] Unable to attend rastafari [] Unable to walk/stand [] Unable to read [] Unable to drive [] Unable to eat/drink [] Unable to sleep [] Unable to be with family [] Patient intubated [] Other: Summary Time spent with patient 15 min
[2024-03-29] MEDS: morphine 4 mg/mL SDV 1 mL IVP ×2 (14:36→22:40)
[2024-03-30] VITALS (9 sets, daily range): BP systolic 110–151; BP diastolic 63–88; PULSE 54–72; RESP 14–18; TEMP 36.4–37.2; O2SAT 93–98
[2024-03-30] MEDS: piperacillin-tazobactam 3.375 GM in sodium chloride 0.9% (plus) 50 ML IV ×3 (01:57→17:16)
[2024-03-30] MEDS: lactated ringers 1,000 ML 125 ML IV (01:57)
[2024-03-30] MEDS: ketorolac 30 mg/mL INJ 15 MG IVP ×4 (04:50→22:48)
[2024-03-30 05:31] LABS: Basophils # 0.1 10^3/uL (0.0-0.1); Basophils % 0.7 %; Eosinophils # 0.3 10^3/uL (0.0-0.8); Eosinophils % 3.3 %; Hematocrit 34.2 % (37-53); Lymphocytes # 2.5 10^3/uL (0.8-4.8); Lymphocytes % 33.5 %; Mean Corpuscular HGB Conc 31.9 g/dL (30-55); Mean Corpuscular Volume 94.2 fl (82-101); Mean Platelet Volume 8.7 fL (7.4-10.4); Monocytes # 0.6 10^3/uL (0.2-0.9); Monocytes % 8.5 %; Neutrophils # 4.03 10^3/uL (1.8-7.7); Neutrophils % 53.3 %; Nucleated Red Blood Cells % 0 %; Platelet Count 315 10^3/cmm (157-399); Red Blood Count 3.63 10^6/uL (3.85-5.65); Red Cell Distribution Width 12.9 % (12.1-15.1); White Blood Count 7.55 10^3/uL (3.29-11.43)
[2024-03-30 05:57] LABS: Anion Gap 9.2 (5-19); Blood Urea Nitrogen 9 mg/dL (6-20); Carbon Dioxide 29 mmol/L (22-29); Chloride 105 mmol/L (98-107); Creatinine Clr Calc Pharmacy 127.5963; Glomerular Filtration Rate 101.5 mL/min (90-130); Glucose 92 mg/dL (65-115); Magnesium 1.9 mg/dL (1.7-2.3); Osmolality Calculated 286 mOsm/kg (285-295); Potassium 4.2 mmol/L (3.5-5.1); Sodium 139 mmol/L (136-145)
--- NOTE | 2024-03-30 09:24 | P.PN_ITS ---
Subjective 2 Subjective: Showing good progression, no significant abdominal pain, normal labs. Vitals/I&O/Wt Last Vital Signs Temp 97.8 F 04/01/24 08:00 Pulse 52 L 04/01/24 08:00 Resp 18 04/01/24 08:35 BP 137/89 04/01/24 08:00 Pulse Ox 100 04/01/24 08:00 O2 Del Method Room Air 04/01/24 08:00 03/31/24 04/01/24 04/01/24 22:59 06:59 14:59 Intake Total 370 / 1915 50 / 1965 400 / 400 Output Total 1000 / 1000 Balance 370 / 1915 -950 / 965 400 / 400 Weight last 48 hrs Weight 206 lb 14.4 oz Weight 214 lb 11.2 oz Physical Exam 2 GI: OTHER: Abdomen soft nontender nondistended. Data 03/31/24 06:22 03/31/24 06:22 A&P Assessment and plan (1) Acute appendicitis: (2) Acute phlegmonous appendicitis: Plan Will require continuous management in-house for perforated appendicitis with phlegmon and abscess, he will have a 5-day course of inpatient antibiotics before being able to transition to the outpatient setting. Attestations 2 Medical Necessity Statement*: Will require full 5 days of antibiotics as inpatient before transition to the outpatient setting due to perforated appendicitis with abscess and phlegmon. Coding Level of Care Code Acute Code for [facility] Diagnoses Acute appendicitis K35.80 Acute phlegmonous appendicitis K35.890
[2024-03-30] MEDS: sodium chloride 0.9% 1,000 ML 125 ML IV ×2 (11:01→22:52)
[2024-03-30] MEDS: pantoprazole 40 mg SDV IVP (11:10)
[2024-03-30] MEDS: morphine 4 mg/mL SDV 1 mL IVP ×2 (17:19→22:48)
[2024-03-31] VITALS (8 sets, daily range): BP systolic 138–175; BP diastolic 76–97; PULSE 61–74; RESP 15–18; TEMP 36.4–37.3; O2SAT 95–99
[2024-03-31] MEDS: sodium chloride 0.9% 1,000 ML 125 ML IV (00:40)
[2024-03-31] MEDS: piperacillin-tazobactam 3.375 GM in sodium chloride 0.9% (plus) 50 ML IV ×3 (00:40→17:12)
--- NOTE | 2024-03-31 00:40 | PC.NURSE ---
Patient had normal saline running at shift change, but had not been scanned. This nurse scanned bag at med pass although it was hung by the previous nurse. Bag now empty.
[2024-03-31] MEDS: ketorolac 30 mg/mL INJ 15 MG IVP ×3 (05:37→22:24)
[2024-03-31 06:47] LABS: Basophils % 0.6 %; Eosinophils # 0.2 10^3/uL (0.0-0.8); Eosinophils % 3.1 %; Hematocrit 34.1 % (37-53); Lymphocytes # 2.3 10^3/uL (0.8-4.8); Lymphocytes % 33.5 %; Mean Corpuscular HGB Conc 32.8 g/dL (30-55); Mean Corpuscular Hemoglobin 29.6 pg (27-33); Mean Platelet Volume 8.7 fL (7.4-10.4); Monocytes # 0.4 10^3/uL (0.2-0.9); Monocytes % 6.5 %; Neutrophils # 3.75 10^3/uL (1.8-7.7); Neutrophils % 55.9 %; Nucleated Red Blood Cells % 0 %; Platelet Count 395 10^3/cmm (157-399); Red Blood Count 3.79 10^6/uL (3.85-5.65); Red Cell Distribution Width 12.6 % (12.1-15.1); White Blood Count 6.72 10^3/uL (3.29-11.43)
[2024-03-31 07:14] LABS: Anion Gap 16.8 (5-19); Blood Urea Nitrogen 5 mg/dL (6-20); Calcium 9.1 mg/dL (8.5-10.5); Carbon Dioxide 23 mmol/L (22-29); Chloride 105 mmol/L (98-107); Creatinine Clr Calc Pharmacy 128.5387; Glomerular Filtration Rate 101.5 mL/min (90-130); Glucose 118 mg/dL (65-115); Osmolality Calculated 290 mOsm/kg (285-295); Potassium 3.8 mmol/L (3.5-5.1); Sodium 141 mmol/L (136-145)
--- NOTE | 2024-03-31 08:21 | P.PN_ITS ---
Subjective 2 Subjective: Hospital day 3, doing very well, tolerating Diet well, no significant abdominal pain. Has been ambulating, had several bowel movements yesterday. Vitals/I&O/Wt Last Vital Signs Temp 99.1 F 03/31/24 08:00 Pulse 69 03/31/24 08:00 Resp 15 03/31/24 08:00 BP 156/87 03/31/24 08:00 Pulse Ox 98 03/31/24 08:00 O2 Del Method Room Air 03/31/24 08:00 03/30/24 03/31/24 03/31/24 22:59 06:59 14:59 Intake Total 1530 / 3540 925 / 4465 275 / 275 Output Total 700 / 1100 Balance 830 / 2440 925 / 3365 275 / 275 Weight last 48 hrs Weight 214 lb 11.2 oz Weight 211 lb 4.8 oz Physical Exam 2 GI: OTHER: Abdominal examination is benign abdomen soft nontender nondistended. Data 03/31/24 06:22 03/31/24 06:22 A&P Assessment and plan (1) Acute phlegmonous appendicitis: Plan 54-year-old male undergoing conservative management of perforated appendicitis with abscess and phlegmon, he is doing very well, abdominal pain has almost completely resolved, he is afebrile, white count is normal, tolerating full liquid diet. Plan is to advance to soft GI diet today, we will discontinue IV fluids. We will continue IV antibiotics for another 48 hours and then patient will be able to transition to the outpatient setting with a 10-day course of p.o. antibiotics. He will then follow-up in our clinic, we will plan to do repeat imaging at the time and he will be off for Interval appendectomy in 6 to 8 weeks. Attestations 2 Medical Necessity Statement*: Patient requires continued hospital stay for management of perforated acute appendicitis with abscess and phlegmon. Coding Level of Care Code Acute Code for [facility] Diagnoses Acute phlegmonous appendicitis K35.890
[2024-03-31] MEDS: morphine 4 mg/mL SDV 1 mL IVP ×3 (08:45→21:06)
--- NOTE | 2024-03-31 09:55 | PC.SOCIAL ---
IMM Update pg 2 of IMM Updated and reviewed w/ patient Copy provided and copy signed and dated and placed in chart.
[2024-03-31] MEDS: pantoprazole 40 mg SDV IVP (12:13)
[2024-03-31] MEDS: docusate sodium 100 mg Capsule PO (21:06)
[2024-04-01] VITALS (10 sets, daily range): BP systolic 100–162; BP diastolic 63–94; PULSE 52–68; RESP 14–18; TEMP 36.3–36.6; O2SAT 96–100
[2024-04-01] MEDS: piperacillin-tazobactam 3.375 GM in sodium chloride 0.9% (plus) 50 ML IV ×3 (00:08→15:45)
[2024-04-01] MEDS: morphine 4 mg/mL SDV 1 mL IVP ×3 (01:27→14:46)
[2024-04-01] MEDS: ketorolac 30 mg/mL INJ 15 MG IVP ×2 (04:30→10:34)
--- NOTE | 2024-04-01 07:57 | P.PN_ITS ---
Subjective 2 Subjective: 54-year-old male, today for hospital day 5 after admission for acute appendicitis with phlegmon and abscess. Patient has responded very well to conservative management, patient has received full 4 days of antibiotics and today will be the fifth day. No abdominal pain no fever no chills did not have a bowel movement the last 24 hours. Vitals/I&O/Wt Last Vital Signs Temp 97.5 F L 04/01/24 04:00 Pulse 60 04/01/24 04:00 Resp 16 04/01/24 04:00 BP 100/63 04/01/24 04:00 Pulse Ox 97 04/01/24 04:00 O2 Del Method Room Air 04/01/24 04:00 03/31/24 04/01/24 04/01/24 22:59 06:59 14:59 Intake Total 370 / 1915 50 / 1965 Output Total 1000 / 1000 Balance 370 / 1915 -950 / 965 Weight last 48 hrs Weight 206 lb 14.4 oz Weight 214 lb 11.2 oz Physical Exam 2 Narrative: General : Patient is well developed , no acute distress, oriented x3 Head : Normal cephalic, a-traumatic. Nose : Mucous membranes are without erythema. Lungs : Equal chest rise bilaterally, no use of accessory muscles, trachea is midline. CV : Rate and rhythm are normal. Abdomen : Soft, ND, NT, no g/r/m Extremities : No edema. Upper extremities are normal bilaterally. Back : non-tender to palpation, no CVA tenderness. Data 03/31/24 06:22 03/31/24 06:22 A&P Assessment and plan (1) Acute appendicitis: (2) Acute phlegmonous appendicitis: Plan Patient showing excellent progression after conservative management of perforated appendicitis with phlegmon and abscess, patient will complete 5 days of IV antibiotics today and plan is for discharge tomorrow morning. Will continue current therapy while he is in-house. He has been encouraged to ambulate. Currently no evidence of abdominal pain. Attestations 2 Medical Necessity Statement*: Patient recurred 24 hours more of hospital stay plan for discharge tomorrow. Coding Level of Care Code Acute Code for [facility] Diagnoses Acute appendicitis K35.80 Acute phlegmonous appendicitis K35.890
[2024-04-01] MEDS: polyethylene glycol 3350 Pkt 17 gm PO ×2 (08:29→15:46)
[2024-04-01 10:15] LABS: Basophils % 0.6 %; Eosinophils # 0.3 10^3/uL (0.0-0.8); Hematocrit 38.9 % (37-53); Lymphocytes # 2.1 10^3/uL (0.8-4.8); Lymphocytes % 32.8 %; Mean Corpuscular HGB Conc 33.4 g/dL (30-55); Mean Corpuscular Volume 89.6 fl (82-101); Mean Platelet Volume 8.3 fL (7.4-10.4); Monocytes # 0.4 10^3/uL (0.2-0.9); Monocytes % 5.5 %; Neutrophils # 3.66 10^3/uL (1.8-7.7); Neutrophils % 56.5 %; Nucleated Red Blood Cells % 0 %; Platelet Count 464 10^3/cmm (157-399); Red Blood Count 4.34 10^6/uL (3.85-5.65); Red Cell Distribution Width 12.6 % (12.1-15.1); White Blood Count 6.49 10^3/uL (3.29-11.43)
[2024-04-01] MEDS: pantoprazole 40 mg SDV IVP (10:34)
[2024-04-01] MEDS: HYDROcodone-acetaminophen 5-325 mg Tablet 1 TAB PO (20:31)
[2024-04-01] MEDS: docusate sodium 100 mg Capsule 200 MG PO (20:33)
[2024-04-02] VITALS: BP 147/85; PULSE 63; RESP 16; TEMP 36.4; O2SAT 99
[2024-04-02] MEDS: HYDROcodone-acetaminophen 5-325 mg Tablet 1 TAB PO ×2 (00:31→06:44)
[2024-04-02] MEDS: piperacillin-tazobactam 3.375 GM in sodium chloride 0.9% (plus) 50 ML IV ×2 (00:31→08:17)
[2024-04-02 04:00] VITALS: BP 144/92; PULSE 59; RESP 18; TEMP 36.4; O2SAT 98
--- NOTE | 2024-04-02 06:45 | PC.NURSE ---
pt reported having BM this morning
--- NOTE | 2024-04-02 07:28 | P.DS_ITS ---
Discharge Providers Date of Admission: 03/28/24 11:14 Date of Discharge: April 02, 2024 Attending Provider at Admission: Yandel Bell MD Attending Provider at Discharge: Yandel Bell MD Primary Care Provider: Raj Dobbins DO Diagnoses at Discharge Discharge Diagnosis (1) Acute appendicitis: Status: Acute (2) Acute phlegmonous appendicitis: Status: Acute Reason for Visit Reason for Visit: right side abdominal pain Brief History: This is a 54-year-old male who presented with 7 days of abdominal pain, CT scan of the abdomen and pelvis showed walled off fluid collection in the right lower quadrant consistent with acute appendicitis with abscess in the periappendiceal phlegmon. He was admitted for conservative management, he was kept on IV antibiotics for full 5 days, by hospital day 2 white count normalized and remained stable over the following 3 days, he has been tolerating diet, having bowel movements, very minimal abdominal pain and physical examination unremarkable. All vital signs stable at the time of discharge. The plan is to continue p.o. antibiotic therapy for 2 more weeks as outpatient and we will repeat a CAT scan in 3 to 4 weeks and we will plan for an interval appendectomy at 4 to 6 weeks. Physical Exam Narrative: General : Patient is well developed , no acute distress, oriented x3 Head : Normal cephalic, a-traumatic. Nose : Mucous membranes are without erythema. Lungs : Equal chest rise bilaterally, no use of accessory muscles, trachea is midline. CV : Rate and rhythm are normal. Abdomen : Soft, ND, NT, no g/r/m Extremities : No edema. Upper extremities are normal bilaterally. Back : non-tender to palpation, no CVA tenderness. Discharge Data Studies Completed and Pending Completed Studies During Hospitalization Category Date Time Status CT abdomen pelvis w con* [id number] Stat Cat Scan 03/28/24 09:[address] kidney stone [id number] Stat Cat Scan 03/28/24 08:18 Completed Pending at discharge Category Date Time Status Blood Culture Stat Lab 03/28/24 10:21 Results Radiology Impressions Abdomen/Pelvis CT 03/28/24 09:57 Impression: 1. Right lower quadrant fluid collection with questionable stone which could represent an inflammatory mass. 2. Negative for renal or ureteral calculi. Laboratory Results WBC 6.49 10^3/uL (3.29-11.43) 04/01/24 10:08 RBC 4.34 10^6/uL (3.85-5.65) 04/01/24 10:08 Hgb 13.00 g/dL (11.27-16.99) 04/01/24 10:08 Hct 38.9 % (37-53) 04/01/24 10:08 MCV 89.6 fl (82-101) 04/01/24 10:08 MCH 30.0 pg (27-33) 04/01/24 10:08 MCHC 33.4 g/dL (30-55) 04/01/24 10:08 RDW 12.6 % (12.1-15.1) 04/01/24 10:08 Plt Count 464 10^3/cmm (157-399) H 04/01/24 10:08 MPV 8.3 fL (7.4-10.4) 04/01/24 10:08 Neut % (Auto) 56.5 % 04/01/24 10:08 Lymph % (Auto) 32.8 % 04/01/24 10:08 [place] % (Auto) 5.5 % 04/01/24 10:08 Eos % (Auto) 4.0 % 04/01/24 10:08 Baso % (Auto) 0.6 % 04/01/24 10:08 Neut # (Auto) 3.66 10^3/uL (1.8-7.7) 04/01/24 10:08 Lymph # (Auto) 2.1 10^3/uL (0.8-4.8) 04/01/24 10:08 [place] # (Auto) 0.4 10^3/uL (0.2-0.9) 04/01/24 10:08 Eos # (Auto) 0.3 10^3/uL (0.0-0.8) 04/01/24 10:08 Baso # (Auto) 0.0 10^3/uL (0.0-0.1) 04/01/24 10:08 Nucleated RBC % (auto) 0 % 04/01/24 10:08 Nucleated RBCs # 0.0 /100WBC 04/01/24 10:08 Sodium 141 mmol/L (136-145) 03/31/24 06:22 Potassium 3.8 mmol/L (3.5-5.1) 03/31/24 06:22 Chloride 105 mmol/L (98-107) 03/31/24 06:22 Carbon Dioxide 23 mmol/L (22-29) 03/31/24 06:22 Anion Gap 16.8 (5-19) 03/31/24 06:22 BUN 5 mg/dL (6-20) L 03/31/24 06:22 Creatinine 0.8 mg/dL (0.7-1.2) 03/31/24 06:22 GFR Calculation 101.5 mL/min (90-130) 03/31/24 06:22 Glucose 118 mg/dL (65-115) H 03/31/24 06:22 Calculated Osmolality 290 mOsm/kg (285-295) 03/31/24 06:22 Calcium 9.1 mg/dL (8.5-10.5) 03/31/24 06:22 Magnesium 2.0 mg/dL (1.7-2.3) 03/31/24 06:22 Total Bilirubin 0.4 mg/dL (0.15-1.2) 03/28/24 08:00 AST 46 U/L (0-40) H 03/28/24 08:00 ALT 91 U/L (0-41) H 03/28/24 08:00 Alkaline Phosphatase 158 U/L (40-130) H 03/28/24 08:00 Total Protein 7.8 g/dL (6.6-8.7) 03/28/24 08:00 Albumin 4.2 g/dL (3.5-5.2) 03/28/24 08:00 Globulin 3.6 g/dL (1.3-4.6) 03/28/24 08:00 Lipase 17 U/L (13-60) 03/28/24 08:00 Urine Color Yellow (Yellow) 03/28/24 08:17 Urine Appearance Clear (CLEAR) 03/28/24 08:17 Urine pH 6.0 (5-7) 03/28/24 08:17 Ur Specific [place] 1.011 (1.005-1.030) 03/28/24 08:17 Urine Protein Negative (Negative) 03/28/24 08:17 Urine Glucose (UA) Negative (Normal) 03/28/24 08:17 Urine Ketones Negative (Negative) 03/28/24 08:17 Urine Blood Negative (Negative) 03/28/24 08:17 Urine Nitrate Negative (Negative) 03/28/24 08:17 Urine Bilirubin Negative (Negative) 03/28/24 08:17 Urine Urobilinogen 1.0 mg/dL (Negative) 03/28/24 08:17 Ur Leukocyte Esterase Negative (Negative) 03/28/24 08:17 Urine RBC 0-2 /hpf (0-2) 03/28/24 08:17 Urine WBC 0-5 /hpf (0-5) 03/28/24 08:17 Ur Squamous Epith Cells 0-5 /hpf (0-5) 03/28/24 08:17 Amorphous Sediment Not Reportable 03/28/24 08:17 Urine Bacteria None seen /hpf (NONE) 03/28/24 08:17 Hyaline Casts 0.40 /lpf 03/28/24 08:17 Vitals Last Vital Signs Temp 97.6 F 04/02/24 04:00 Pulse 59 L 04/02/24 04:00 Resp 18 04/02/24 04:00 BP 144/92 04/02/24 04:00 Pulse Ox 98 04/02/24 04:00 O2 Del Method Room Air 04/02/24 04:00 Discharge Plan Discharge Patient Disposition: Home Condition: Stable Prescriptions: New pantoprazole 40 mg tablet,delayed release (DR/EC) 40 mg PO DAILY 15 Days Qty: 15 0RF polyethylene glycol 3350 [Miralax] 17 gram powder in packet 17 g PO DAILY 7 Days Qty: 7 0RF meloxicam 7.5 mg tablet 7.5 mg PO DAILY 5 Days Qty: 5 0RF amoxicillin-pot clavulanate 875-125 mg tablet 1 tab PO BID 10 Days Qty: 20 0RF Continued Afrin (oxymetazoline) 0.05 % mist 2 spray intranasal Q12H PRN (Reason: allergies) docusate sodium 100 mg Capsule 100 mg PO BID hydrocodone-acetaminophen 5-325 mg tablet 1 tab PO Q6H PRN (Reason: Pain) 5 Days Qty: 20 0RF Discontinued naproxen sodium [Aleve] 220 mg capsule 220 mg PO BID PRN (Reason: Pain) Discharge Orders: Discharge Order (Routine); Ordered 04/02/24 Ordered By: Yandel Bell Referrals: [place],Raj W, DO [Primary Care Provider] - Yandel Bell MD [Physician] - (3 weeks) Discharge Diet: GI Soft Discharge Activity: Resume usual activity Patient Instructions: Opioid Safety, GI (Gastrointestinal) Soft Diet (DC) Activity Restrictions/Additional Instructions: Please return to the hospital if you have fever more than 1-1.5, if you have severe abdominal pain that is getting worse over time despite pain medication, if you have chills, this can indicate that the appendicitis has return and you may need additional intervention. Discharge Attestations Time Spent in Discharge Care*: less than 30 min Quality Metrics Clinical Quality Measures [ No reported AMI, CVA or VTE this stay] Coding Level of Care Code Acute Code for [facility] Diagnoses Acute appendicitis K35.80 Acute phlegmonous appendicitis K35.890
[2024-04-02 08:00] VITALS: BP 148/87; PULSE 57; RESP 14; TEMP 36.6; O2SAT 97
[2024-04-02] MEDS: meloxicam 7.5 mg tablet PO (08:17)
[2024-04-02 09:36] VITALS: BP 140/80; PULSE 60; RESP 18; TEMP 36.7; O2SAT 97
== END 2024-04-02 09:36 | disposition home or self-care (01) | DRG 373 ==
LOC: ER 09:12 → ER IP 11:14 → MEDSURG 12:09
PROVIDERS: Admitting Provider Surgery; Emergency Provider Family Medicine; PCP Family Medicine; Visit Provider Surgery
DX: K35.33 Acute appendicitis with perforation, localized peritonitis, and gangrene, with abscess (principal); E78.5 Hyperlipidemia, unspecified; I35.1 Nonrheumatic aortic (valve) insufficiency; Z98.1 Arthrodesis status; Z87.891 Personal history of nicotine dependence; Z82.49 Family history of ischemic heart disease and other diseases of the circulatory system
CPT/HCPCS: 36415; 74176; 74177; 80048; 80053; 81001; 83690; 83735; 85025; 87040; 96365; 96366; 96375; 99285; J1885; J2270; J2405; J2470; J2543; J7030; J7120

== ENCOUNTER → 2024-04-26 13:52 | Outpatient (BNVA) | payer MEDICARE, MEDICAID, SELFPAY | PROVIDERS: PCP Family Medicine; Visit Provider Surgery | DX: Z09 Encounter for follow-up examination after completed treatment for conditions other than malignant neoplasm; R03.0 Elevated blood-pressure reading, without diagnosis of hypertension | CPT/HCPCS: 99214 ==

== ENCOUNTER 2024-05-11 09:19 | Day surgery (SDC) | payer MEDICARE, MEDICAID, SELFPAY ==
[2024-05-11 09:32] VITALS: BP 105/76; PULSE 70; RESP 16; TEMP 36.6; O2SAT 97; BMI 29.8
[2024-05-11] MEDS: sodium chloride 0.9% 500 ML 15 ML IV (09:38)
--- NOTE | 2024-05-11 09:40 | P.HPUD_ITS ---
Surgery/Procedure H&P Update DATE OF PROCEDURE: May 11, 2024 DATE H&P PERFORMED: 04/26/24 H&P UPDATE INFORMATION: I have reviewed H&P completed within last 30 days, I have examined patient prior to procedure, No changes to prior documentation and H&P is in [facility] [place] on date indicated PLANNED PROCEDURE: Operation Date: 05/11/24 10:35 Proposed Procedures p Colonoscopy 33389, G0105, Z12.11(Not Applicable) - Yandel Bell MD
--- NOTE | 2024-05-11 11:09 | ANES.PREANE2 ---
Pre-Anesthetic Assessment Height/Weight: Height 1.8 m Weight 97.069 kg Temp Pulse Resp BP Pulse Ox O2 Del Method 97.9 F 70 16 105/76 97 Room Air 05/11/24 09:32 05/11/24 09:32 05/11/24 09:32 05/11/24 09:32 05/11/24 09:32 05/11/24 09:32 Preop Diagnosis: screening Operation Date: 05/11/24 10:35 Proposed Procedures p Colonoscopy 02075, G0105, Z12.11(Not Applicable) - Yandel Bell MD Was Beta Ankur taken within 24 hours: N/A Was Clonidine taken within 24 hours: N/A Last intake: Intake Last Liquid Date 05/10/24 Last Liquid Time 23:00 Last Solid Date 05/09/24 Last Solid Time 17:30 Social Tobacco Exam alert, oriented x 3, clear to auscultation bilaterally and regular rate & rhythm Airway Submandibular: within normal limits Cervical ROM: within normal limits Mallampati: Class II Dentition: full History/ROS No significant history except as noted and No significant complaints Pulmonary Chronic Obstructive Pulmonary Disease CV/HEM Murmur Aortic regurge None reported Hepatic None reported GI None reported Metabolic None reported Musc/skel Lower Back Pain Neuropsych None reported Anesthetic Plan ASA status: 2 Anesthesia: Anesthesia Evaluation and MAC Risk of > 500 ml blood loss (7ml/kg in children): No Medications/Allergies Home Medications Medication Instructions Recorded Confirmed Last Taken Type oxymetazoline 0.05 % nasal mist 2 spray intranasal Q12H PRN 03/11/23 05/11/24 05/09/24 History (Afrin (oxymetazoline)) allergies docusate sodium 100 mg capsule 100 mg PO BID 03/28/24 05/11/24 03/27/24 History ondansetron 8 mg disintegrating 8 mg PO Q8H PRN nausea and 04/26/24 05/11/24 Unknown Rx tablet vomiting #3 tabs Allergies Allergy/AdvReac Type Severity Reaction Status Date / Time ropinirole Allergy Unknown Unknown Verified 04/26/24 14:06 oxycodone Allergy ADR-Dizzine Verified 04/26/24 14:06 ss tramadol AdvReac Severe Legs Verified 04/26/24 14:06 swelling cefazolin AdvReac Intermediate facial Verified 04/26/24 14:06 edema gabapentin AdvReac Unknown DIZZINESS Verified 04/26/24 14:06 pregabalin [From Lyrica] AdvReac FLORES Verified 04/26/24 14:06 Current Medications Generic Name Dose Route Start Last Admin Trade Name Freq PRN Reason Stop Dose Admin Sodium Chloride 500 mls @ 15 mls/hr 05/11/24 09:25 05/11/24 09:38 Sodium Chloride 0.9% IV 05/12/24 09:24 15 mls/hr .Q24H PRN Administration COLONOSCOPY FLUIDS PFSH Anesthesia Medical History Dyslipidemia Aortic regurgitation 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 Pepper L4-L5, L5-S1 laminectomy with pedicle screw/nathalie fixation and transverse process fusion. Family History Mother Heart disease 62 years of age Father Unknown family medical history Denies family history of Clotting disorder Anesthesia complication Bleeding disorder Social History Smoking and tobacco/nicotine status: former use of tobacco/nicotine Second hand smoke exposure: No Alcohol intake: never Substance/Drug Use: current Substance/Drug use frequency: daily Caregiver/support person: No Lives independently: Yes Household members: significant other Housing: House Marital status: Single service: No Current occupational status: disabled Do you think of yourself as: Straight/Heterosexual Current gender identity: Male Data Anesthesia Cardiac Studies: Echocardiogram 06/15/22 Sestamibi Stress Test (Cardiology) 07/21/22
[2024-05-11 11:15] VITALS: BP 104/60; PULSE 71; RESP 20; TEMP 36.4; O2SAT 99
[2024-05-11 11:25] VITALS: BP 105/64; PULSE 77; RESP 18; O2SAT 96
--- NOTE | 2024-05-11 11:45 | ANE.PACU2 ---
Inpatient post-anesthesia follow up: Airway intact: Yes Vital signs: Temperature 97.5 F Pulse Rate 77 Respiratory Rate 18 Blood Pressure 105/64 Pulse Oximetry 96 Oxygen Delivery Me thod Room Air Oxygen Flow Rate Fraction of Inspir ed Oxygen Hydration adequate: Yes Nausea and vomiting: No Pain level: 1 Mental status: Baseline
[2024-05-11 12:20] LABS: Basophils # 0.1 10^3/uL (0.0-0.1); Basophils % 0.4 %; Eosinophils # 0.2 10^3/uL (0.0-0.8); Hematocrit 43.2 % (37-53); Lymphocytes # 2.2 10^3/uL (0.8-4.8); Lymphocytes % 18.7 %; Mean Corpuscular HGB Conc 32.4 g/dL (30-55); Mean Corpuscular Hemoglobin 30.2 pg (27-33); Mean Corpuscular Volume 93.1 fl (82-101); Mean Platelet Volume 8.7 fL (7.4-10.4); Monocytes # 0.7 10^3/uL (0.2-0.9); Monocytes % 5.7 %; Neutrophils # 8.65 10^3/uL (1.8-7.7); Neutrophils % 72.9 %; Nucleated Red Blood Cells % 0 %; Platelet Count 337 10^3/cmm (157-399); Red Blood Count 4.64 10^6/uL (3.85-5.65); Red Cell Distribution Width 14.4 % (12.1-15.1); White Blood Count 11.88 10^3/uL (3.29-11.43)
[2024-05-11 12:39] LABS: Anion Gap 12.2 (5-19); Blood Urea Nitrogen 9 mg/dL (6-20); C Reactive Protein 22.8 mg/L (0.0-4.9); Calcium 8.8 mg/dL (8.5-10.5); Carbon Dioxide 27 mmol/L (22-29); Chloride 102 mmol/L (98-107); Creatinine Clr Calc Pharmacy 146.6799; Glomerular Filtration Rate 118.4 mL/min (90-130); Glucose 126 mg/dL (65-115); Osmolality Calculated 284 mOsm/kg (285-295); Potassium 4.2 mmol/L (3.5-5.1); Sodium 137 mmol/L (136-145)
== END 2024-05-11 11:47 | disposition home or self-care (01) ==
PROVIDERS: PCP Family Medicine; Visit Provider Surgery
PROC: 0DJD8ZZ Inspection of Lower Intestinal Tract, Via Natural or Artificial Opening Endoscopic (ICD-10-PCS; CPT 45378; principal; 2024-05-11 10:35)
DX: Z12.11 Encounter for screening for malignant neoplasm of colon (principal); J44.9 Chronic obstructive pulmonary disease, unspecified; Z79.899 Other long term (current) drug therapy; Z88.8 Allergy status to other drugs, medicaments and biological substances; Z88.5 Allergy status to narcotic agent; E78.5 Hyperlipidemia, unspecified; Z87.891 Personal history of nicotine dependence
CPT/HCPCS: 36415; 80048; 85025; 86140; G0121; J7040

== ENCOUNTER → 2024-05-23 10:59 | Outpatient (BNVA) | payer MEDICARE, SELFPAY | PROVIDERS: PCP Family Medicine; Visit Provider Surgery | DX: Z09 Encounter for follow-up examination after completed treatment for conditions other than malignant neoplasm (principal) | CPT/HCPCS: 99213 ==

== ENCOUNTER 2024-05-30 07:21 | Outpatient (CLI) | payer MEDICARE, MEDICAID, SELFPAY ==
--- NOTE | 2024-05-30 08:30 | CT_ITS ---
WS: [id number] CT ABDOMEN AND PELVIS WITH CONTRAST HISTORY: appendicitis, hx of intraabdominal abscess TECHNIQUE: Imaging performed of the abdomen and pelvis with IV contrast. Single phase imaging of the abdomen. Coronal and sagittal reformats are submitted. All CT scans at [facility] use at least one of these dose optimization techniques: automated exposure control; mA and/or kV adjustment per patient size (includes targeted exams where dose is matched to clinical indication); or iterative reconstruction. IV CONTRAST: Omnipaque 350; 100 mL IV. Oral contrast: Yes. DLP: 637.17 mGy.cm COMPARISON: 03/28/2024 Lower thorax: RIGHT lung granuloma. No pneumonia. Heart is normal size. Small hiatal hernia. Liver/biliary system: Normal size with no intrahepatic dilatation. Gallbladder: Normal. No gallstones or wall thickening. No pericholecystic fluid. Pancreas: Normal size pancreas and pancreatic duct. No adjacent inflammation. Spleen: Normal size spleen. No mass or infarct. Granuloma. Adrenal glands: Normal. Right kidney: Normal. Left kidney: Normal. Aorta: Mild atherosclerosis with no aneurysm. Lymphadenopathy: None. Free fluid: None. GI tract: Appendix is identified in the RIGHT lower quadrant and remains slightly enlarged at 8.6 mm. There is a small amount of air in the mid appendix. Small amount of periappendiceal stranding noted involving the mid to distal appendix. This is the area where there was a significant abscess with post appendiceal rupture on 03/28/2024. This may be residual of the healing process or new developing mild appendicitis. The remaining colon is unremarkable. Abdominal wall: Diastases of the abdominal wall musculature. No hernia. Pelvis: No free fluid or adenopathy within the pelvis. Bones: Prior lumbar fusion at L4-S1. Grade 2, L5 spondylolysis. CT/CT abdomen pelvis w con* [id number] IMPRESSION: 1. Significant interval improvement in the RIGHT lower quadrant inflammatory p rocess related to appendiceal rupture. 2. Appendix is slightly dilated at 8.6 mm with periappendiceal stranding. Diff erential includes new acute mild appendicitis versus residual inflammatory proc ess from 03/28/2024. 3. No renal obstruction.
[2024-05-30] MEDS: iohexol 350 mg/mL 500 mL Btl (per mL) PO (09:03)
[2024-05-30] MEDS: iohexol 350 mg/mL 500 mL Btl (per mL) IV (09:04)
== END 2024-05-30 07:22 | disposition home or self-care (01) ==
LOC: RAD 07:24
PROVIDERS: PCP Family Medicine; Visit Provider Surgery
DX: K37 Unspecified appendicitis (principal); K65.1 Peritoneal abscess; R93.89 Abnormal findings on diagnostic imaging of other specified body structures; J84.10 Pulmonary fibrosis, unspecified; K44.9 Diaphragmatic hernia without obstruction or gangrene; D73.89 Other diseases of spleen; I70.0 Atherosclerosis of aorta; M62.08 Separation of muscle (nontraumatic), other site; Z98.1 Arthrodesis status; M47.896 Other spondylosis, lumbar region
CPT/HCPCS: 74177

== ENCOUNTER → 2024-06-02 08:25 | Outpatient (BNVA) | payer MEDICARE, MEDICAID, SELFPAY | PROVIDERS: PCP Family Medicine; Visit Provider Surgery | DX: Z09 Encounter for follow-up examination after completed treatment for conditions other than malignant neoplasm (principal) | CPT/HCPCS: 99213 ==

== ENCOUNTER → 2024-12-12 15:15 | Outpatient (BNVA) | payer MEDICARE, MEDICAID, SELFPAY | PROVIDERS: PCP Family Medicine; Visit Provider Family Medicine | DX: R73.9 Hyperglycemia, unspecified (principal); I27.20 Pulmonary hypertension, unspecified; E78.5 Hyperlipidemia, unspecified; N40.1 Benign prostatic hyperplasia with lower urinary tract symptoms; N13.8 Other obstructive and reflux uropathy; G56.02 Carpal tunnel syndrome, left upper limb; M25.50 Pain in unspecified joint; Z12.5 Encounter for screening for malignant neoplasm of prostate; R07.9 Chest pain, unspecified; E55.9 Vitamin D deficiency, unspecified | CPT/HCPCS: 80053; 80061; 82306; 82607; 83036; 83721; 84443; 85025; 85651; 86140; 86431; G0103 ==

== ENCOUNTER 2024-12-15 08:00 | Outpatient (CLI) | payer MEDICARE, MEDICAID, SELFPAY ==
--- NOTE | 2024-12-15 08:05 | XR_ITS ---
WS: [id number] AP views both knees, 12/15/2024 Clinical Data: M25.561 - Pain in right knee Comparison: None. Findings: AP right knee: The medial and lateral joint spaces are normal. There is a bipartite patella. The soft tissues are normal. AP left knee: The medial and lateral joint spaces are normal. There is a bipartite patella. The soft tissues are normal. XR/[place] [id number] Impression: Bilateral bipartite patellas.
== END 2024-12-15 08:01 | disposition home or self-care (01) ==
LOC: RAD 08:01
PROVIDERS: PCP Family Medicine; Visit Provider Family Medicine
DX: Q74.1 Congenital malformation of knee (principal)
CPT/HCPCS: 73565